=== PATIENT | female | born 1930 | race Caucasian/White ===

== ENCOUNTER → 2017-01-03 | Outpatient (CLI) | payer MEDICARE, OTHER | END | disposition home or self-care (01) | LOC: GMAH 11:21 | PROVIDERS: ATTEND Family Medicine | DX: E78.2 Mixed hyperlipidemia (principal); I10 Essential (primary) hypertension; E03.9 Hypothyroidism, unspecified ==

== ENCOUNTER → 2017-01-04 | Outpatient (CLI) | payer MEDICARE, OTHER | END | disposition home or self-care (01) | LOC: GMAH 10:50 | PROVIDERS: ATTEND Family Medicine | DX: N39.0 Urinary tract infection, site not specified (principal) ==

== ENCOUNTER → 2017-01-22 | Outpatient (CLI) | payer MEDICARE, OTHER ==
--- NOTE | 2017-01-23 14:57 | MAM ---
History: Well woman exam. Personal history of breast cancer status post left mastectomy Date of exam: 01/22/2017 Services provided: Right full field digital screening mammography. CAD, the images were reviewed with R2 computer aided detection. FINDINGS: Glandular tissue is scattered glandular contour. Comparison with 2013 and 2015 exams. 7 mm nodule right breast 9:00 sonographically approximately 4 to 6 cm from the nipple. Vascular calcifications are shown. No architectural distortion or clustered microcalcification. IMPRESSION: Incomplete exam Recommendation: Directed right breast sonography 9:00. BIRAD CATEGORY: 0 INCOMPLETE Electronically signed by: Anaid Torres MD 01/23/2017 2:57 PM CDT Workstation: [id number]
== END | disposition home or self-care (01) ==
LOC: MAMMO 09:49
PROVIDERS: ATTEND Family Medicine
DX: Z12.31 Encounter for screening mammogram for malignant neoplasm of breast (principal)

== ENCOUNTER → 2017-02-08 | Outpatient (CLI) | payer MEDICARE, OTHER ==
--- NOTE | 2017-02-08 16:00 | US ---
History: Mammographic nodule right breast 9:00. DATE OF SERVICE: 02/08/2017 Services provided: Directed right breast sonography. FINDINGS: Patient is status post left mastectomy. Review of screening mammogram from 01/22/2017. Ultrasound examination confirms a 7 mm solid nodule with increased focal vascularity. No additional sonographic abnormality is shown in this patient who has had a left mastectomy remotely for breast carcinoma. IMPRESSION: Suspicious exam. 7 mm solid nodule right breast. Recommendation: Ultrasound-guided needle sampling. Findings and recommendations were discussed with the patient today. BIRAD CATEGORY: 4 SUSPICIOUS FINDINGS Electronically signed by: Anaid Torres MD 02/08/2017 3:59 PM CDT Workstation: [employer]
== END | disposition home or self-care (01) ==
LOC: MAMMO 15:01
PROVIDERS: ATTEND Family Medicine
DX: Z85.3 Personal history of malignant neoplasm of breast (principal)

== ENCOUNTER → 2017-02-21 | Outpatient (CLI) | payer MEDICARE, OTHER ==
--- NOTE | 2017-02-21 10:00 | OP ---
DATE OF PROCEDURE: 02/21/17 PREOPERATIVE DIAGNOSIS: 1. Right breast mass. POSTOPERATIVE DIAGNOSIS: 1. Right breast mass. PROCEDURE: 1. Sonographically guided needle core biopsy, right breast mass. SURGEON: Rajendra Bassett MD. HAND ALTERATIONS TAILOR: None. ANESTHESIA: Local infiltration of 1% lidocaine. INDICATION: The patient is an 86-year-old female who is status post left mastectomy in the distant past from malignancy. Routine mammography revealed a small solid mass in the 9 o'clock position of the right breast. She was brought to the Ultrasound Unit today for sonographically guided needle core biopsy after the risks, benefits and alternatives to the procedure were discussed and accepted. FINDINGS: Multiple cores were taken with the needle identified by ultrasound within the mass. PROCEDURE: The patient was placed in the supine position and the right shoulder and back were raised on a pillow. The breast was examined and the lesion was identified. The breast medial to the ultrasound probe is prepped with Betadine and draped. Local infiltration of anesthesia was obtained with 1% lidocaine and a stab wound was made with the 15 blade. When this was done, the biopsy device was introduced for multiple passes through the lesion. The specimens were sent for pathological evaluation. Hemostasis was obtained with pressure and a single 4-0 Nylon simple suture. Sterile dressing and pressure dressing was applied. The patient tolerated the procedure well. Estimated blood loss was less than 5 mL. #[id number] [facility]
--- NOTE | 2017-02-22 12:51 | US ---
History: Right breast nodule 9:00. Ultrasound-guided core biopsy: 16 images are submitted from an ultrasound-guided needle biopsy of a 7 mm nodule in the right breast 9:00. Several of the images demonstrate the needle traversing the nodule. No complication is demonstrated. IMPRESSION: Technically successful ultrasound-guided core needle biopsy right breast nodule 9:00, performed by the patient's surgeon. Electronically signed by: Anaid Torres MD 02/22/2017 12:49 PM CDT Workstation: [id number]
== END | disposition home or self-care (01) ==
LOC: US 07:52
PROVIDERS: ATTEND Surgery
PROC: 0HBT3ZX Excision of Right Breast, Percutaneous Approach, Diagnostic (ICD-10-PCS; principal; 2017-02-21)
DX: D05.81 Other specified type of carcinoma in situ of right breast (principal)

== ENCOUNTER → 2017-07-25 | Outpatient (CLI) | payer MEDICARE, OTHER | END | disposition home or self-care (01) | LOC: LAB.O 15:40 | PROVIDERS: ATTEND Urology | DX: R31.0 Gross hematuria (principal); N39.0 Urinary tract infection, site not specified ==

== ENCOUNTER → 2017-07-31 | Outpatient (CLI) | payer MEDICARE, OTHER ==
--- NOTE | 2017-07-31 19:41 | CT ---
EXAM DESCRIPTION: Abdomen/Pelvis w/wo Contrast CLINICAL HISTORY: POOR URINARY STREAM COMPARISON: None Available TECHNIQUE: Contiguous axial images of the abdomen and pelvis were obtained after the administration of intravenous contrast followed by reconstruction images.This exam was performed according to our departmental dose-optimization program, which includes automated exposure control, adjustment of the mA and/or kV according to patient size and/or use of iterative reconstruction technique. FINDINGS: Multiple nonspecific low-attenuation lesions are seen in the left kidney. Some are too small to characterize accurately. None are definitely solid. A few similar lesions are seen in the right kidney. Gallbladder is surgically absent. There is colonic diverticulosis. No clear evidence of diverticulitis. No definite peroneal or urinary bladder mass. There is a small hiatal hernia. There is no evidence of obstruction of either renal collecting system. There is mild irregularity of posterior nerve bladder mucosa, which is nonspecific and could be related to underdistention of the urinary bladder. The liver, spleen, pancreas and kidneys are otherwise within normal limits. There is no hydronephrosis. Adrenal glands are within normal limits. Aorta is normal in caliber and tapering. No significant free fluid. No free air. No bowel obstruction. There is no stranding of the mesenteric fat. IMPRESSION: No clear etiology for acute symptoms. Electronically signed by: Esau Pace 07/31/2017 7:39 PM HEAD OF ICT
== END | disposition home or self-care (01) ==
LOC: CT 11:08
PROVIDERS: ATTEND Urology
DX: R39.12 Poor urinary stream (principal)

== ENCOUNTER → 2018-01-25 | Outpatient (CLI) | payer OTHER | LOC: GMAH 10:28 | PROVIDERS: ATTEND Family Medicine | DX: E03.9 Hypothyroidism, unspecified (principal); E78.2 Mixed hyperlipidemia ==

== ENCOUNTER → 2018-02-13 | Outpatient (CLI) | payer OTHER ==
--- NOTE | 2018-02-15 15:23 | MAM ---
EXAM DESCRIPTION: 3D Screening BILATERAL : Digital Mammography. CLINICAL HISTORY: 87 years Female SCREENING left breast cancer with mastectomy. "Knot in right breast, taking medicine." Prior right breast biopsy. Mother with ovarian cancer. Childbirth. Postmenopausal. No HRT. COMPARISON: Right breast digital screening 2-D mammography 01/22/2017.. Report from prior examination also reviewed TECHNIQUE: Right CC and MLO projection full-field images, 3-D tomosynthesis digital mammographic technique. CAD not utilized. FINDINGS: Right breast parenchymal density pattern is: Heterogeneously dense breast tissue, which may obscure small masses. No skin thickening or nipple retraction. Vascular calcifications. Right axillary lymph nodes. Skin moles indicated by skin markers. Secretory calcifications. No new focal, stellate mass or density, focal asymmetry , and no suspicious microcalcifications right breast. Stable mammograms compared to prior study, taking into account differences in mammographic technique. IMPRESSION: BI-RADS CATEGORY: 2 - BENIGN FINDINGS. FOLLOW UP: Routine digital right breast screening, one year interval from January 2019. Written communication explaining the IMPRESSION and follow-up, will be mailed to the patient and referring health care provider. According to the [employer], yearly mammograms are recommended starting at age 40 and continuing as long as a woman is in good health. Any breast change noted on a breast self-exam should be reported promptly to the patient's healthcare provider. Breast MRI is recommended for women with an approximately 20-25% or greater lifetime risk of breast cancer, including women with a strong family history of breast or ovarian cancer and women who have been treated for Hodgkin's disease. A negative mammographic report should not delay tissue diagnosis in patients with significant clinical history or physical findings. Extremely dense breast tissue limits the sensitivity of digital mammography. Electronically signed by: Esau Mane MD 02/15/2018 3:22 PM CDT
== END ==
LOC: MAMMO 11:00
PROVIDERS: ATTEND Family Medicine
DX: Z12.31 Encounter for screening mammogram for malignant neoplasm of breast (principal)

== ENCOUNTER 2018-07-05 17:03 | Inpatient (IN) | payer OTHER ==
[2018-07-05] MEDS ORDERED: IPRATROPIUM/ALBUTEROL 3 ML VIAL NEB ONE (17:32)
[2018-07-05] MEDS ORDERED: KETOROLAC TROMETHAMINE INJ 30 MG/ML VIAL IM ONE (17:32)
[2018-07-05] MEDS ORDERED: HYDROcodone 5MG/APAP 325MG 1 EA TAB PO ONE (17:33)
--- NOTE | 2018-07-05 17:53 | RAD ---
EXAM DESCRIPTION: Chest,2 Views CLINICAL HISTORY: 87 years Female hypoxia cough 1 week COMPARISON: 10/30/2012. FINDINGS: Mildly prominent cardiomediastinal silhouette. Atherosclerotic calcifications in the thoracic aorta. Mild blunting of the bilateral costophrenic angles which could be from small pleural effusions. Mild opacity at the lung bases greater on the right. The areas of opacity could be from pneumonia, atelectasis or aspiration. No pneumothorax. There are surgical clips in the left axillary region. Degenerative changes in the shoulders and spine. IMPRESSION: Bibasilar opacities greater on the right which could be from infectious process, atelectasis or aspiration. Electronically signed by: Kiko Olsen MD 07/05/2018 5:52 PM TEACHER AIDE
[2018-07-05] MEDS ORDERED: KETOROLAC TROMETHAMINE INJ 30 MG/ML VIAL IV ONE (17:55)
[2018-07-05] MEDS ORDERED: AZITHROMYCIN IV 500 MG in SODIUM CHLORIDE 0.9% 250ML 250 ML IVPB ONE (18:24)
[2018-07-05] MEDS ORDERED: SODIUM CHLORIDE 0.9% 1000ML 1,000 ML IVS ONE ×2 (18:24→22:40)
[2018-07-05] MEDS ORDERED: cefTRIAXone SODIUM 1 GM VIAL IM ONE (18:24)
[2018-07-05] MEDS ORDERED: cefTRIAXone SODIUM 1 GM VIAL ONE (18:33)
[2018-07-05] MEDS ORDERED: cefTRIAXone SODIUM 1 GM in SODIUM CHL 0.9% 50ML MIN-BAG+ 50 ML IVPB ONE (18:33)
[2018-07-05] MEDS ORDERED: SODIUM CHL 0.9% 50ML MIN-BAG+ 50 ML IVPB ONE (18:34)
--- NOTE | 2018-07-05 19:19 | ED.PDOC ---
History of Present Illness - General Chief Complaint: Back Pain or Injury Stated Complaint: low back pain Time Seen by Provider: 07/05/18 17:18 Source: patient, family Exam Limitations: no limitations - History of Present Illness Initial Comments: the patient is an 87-year-old female presenting to the emergency room secondary to persistent cough for the last week and increasing body aches including low back pain today. She has been having a harder time getting around over the last few days. She has been feeling more short of breath. Cough has been minimally productive. No syncope. No significant urinary symptoms. She is pleasant and cooperative. She is hypoxic at around 88% at rest on room air. She is old and frail. Timing/Duration: unsure Severity: moderate Improving Factors: nothing Worsening Factors: nothing Associated Symptoms: cough, loss of appetite, malaise, shortness of breath, weakness Allergies/Adverse Reactions: Allergies NO KNOWN ALLERGY Allergy (Verified 10/03/12 06:50) Home Medications: Ambulatory Orders Aspirin [Aspir-81] 81 mg PO BID #0 10/03/12 Calcium 1,200 mg PO DAILY #0 10/03/12 Esomeprazole [Nexium] 40 mg PO DAILY #0 10/03/12 Fish Oil 1,200 mg PO PRN PRN #0 10/03/12 Irbesartan [Avapro] 300 mg PO DAILY #0 10/03/12 Levothyroxine Sodium [Synthroid] 0.1 mg PO DAILY #0 10/03/12 Multiple Vitamin [Ocuvite] 1 ea PO PRN PRN #0 10/03/12 Rosuvastatin Calcium [Crestor] 40 mg PO DAILY #0 10/03/12 Temazepam [Restoril] 30 mg PO HS PRN #0 10/03/12 Review of Systems - Review of Systems Constitutional: States: malaise, weakness EENTM: States: nose congestion Respiratory: States: cough, short of breath Cardiology: States: no symptoms reported Gastrointestinal/Abdominal: States: no symptoms reported Genitourinary: States: no symptoms reported Musculoskeletal: States: back pain Skin: States: no symptoms reported Neurological: States: no symptoms reported, weakness - generalized Endocrine: States: no symptoms reported All other Systems: No Change from Baseline Past Medical History (General) - Patient Medical History Hx Seizures: No Hx Stroke: No Hx Asthma: No Hx of COPD: No Hx Cardiac Disorders: Yes Hx Congestive Heart Failure: No Hx Pacemaker: No Hx Hypertension: Yes Hx Diabetes: No Hx Cancer: Yes - Breast Hx MRSA: No Surgical History: cholecystectomy - Vaccination History Hx Influenza Vaccination: Yes Hx Pneumococcal Vaccination: Yes - Social History Hx Tobacco Use: No Hx Alcohol Use: No Hx Substance Use: No Hx Physical Abuse: No Hx Emotional Abuse: No Family Medical History - Family History Mother Family History: Unknown Living Status: Unknown Physical Exam - Physical Exam General Appearance: Alert, Frail, Ill Appearing Eye Exam: bilateral normal Ears, Nose, Throat: hearing grossly normal, normal ENT inspection Neck: full range of motion, supple Respiratory: no respiratory distress, no accessory muscle use, rales, rhonchi Cardiovascular/Chest: normal peripheral pulses, no edema, tachycardia - mild Peripheral Pulses: radial,right: 2+, radial,left: 2+, dorsalis pedis,right: 2+, dorsalis pedis,left: 2+ Gastrointestinal/Abdominal: non tender, soft Rectal Exam: deferred Back Exam: normal inspection, no CVA tenderness Extremity: non-tender, normal inspection, no pedal edema, normal capillary refill Neurologic: locomotive oiler II-XII nml as tested, alert, normal mood/affect, oriented x 3 Skin Exam: normal color Comments: Vital Signs - 24 hr 07/05/18 07/05/18 07/05/18 17:20 17:49 18:04 Temperature 101.2 F H Pulse Rate 100 H 95 H Pulse Rate [ 105 H Left Brachial] Respiratory 24 22 20 Rate Blood Pressure 111/70 [Left Arm] O2 Sat by Pulse 87 L 90 L 93 L Oximetry 07/05/18 07/05/18 18:47 19:00 Temperature 99.3 F Pulse Rate Pulse Rate [ 93 H Left Brachial] Respiratory 28 H 20 Rate Blood Pressure 105/63 [Left Arm] O2 Sat by Pulse 93 L Oximetry Progress - Progress Progress: 07/05/18 19:20 patient's an 87-year-old female presenting to emergency room with what appears to be bilateral basilar pneumonia approximately one week's duration. Blood cultures have been performed. She has been placed on Rocephin and azithromycin. She also has mild acute on chronic renal failure and received is receiving IV fluids for this. She is also receive a dose of hydrocodone and Toradol for her low back pain. The patient is hypoxic and is on supplemental oxygen. We did give a trial of the DuoNeb without much change. Admit for further care. - Results/Orders Results/Orders: Laboratory Tests 07/05/18 07/05/18 07/05/18 17:55 17:55 17:55 WBC 7.0 RBC 3.56 L Hgb 10.2 L Hct 31.7 L MCV 89.1 MCH 28.6 MCHC 32.1 L RDW 14.4 Plt Count 197 MPV 8.1 Absolute Neuts (auto) 6.20 Absolute Lymphs (auto) 0.30 L Absolute Monos (auto) 0.40 Absolute Eos (auto) 0.00 Absolute Basos (auto) 0.00 Neutrophils % 88.7 H Lymphocytes % 4.5 L Monocytes % 6.1 Eosinophils % 0.4 L Basophils % 0.3 Sodium 129 L Potassium 4.2 Chloride 99 L Carbon Dioxide 21 Anion Gap 13.2 BUN 51 H Creatinine 1.72 H BUN/Creatinine Ratio 29.7 H Random Glucose 156 H Serum Osmolality 275.8 Lactic Acid 1.8 Calcium 8.1 L Magnesium 1.9 Total Bilirubin 0.8 AST 47 H ALT 34 Alkaline Phosphatase 83 Serum Total Protein 6.5 Albumin 3.2 Globulin 3.3 Albumin/Globulin Ratio 1.0 L chest x-ray shows bibasilar infiltrates consistent with pneumonia. Departure - Departure Clinical Impression: Community acquired pneumonia Qualifiers: Laterality: unspecified laterality Qualified Code(s): J18.9 - Pneumonia, unspecified organism Disposition: Admit Patient Condition: Serious Referrals: Malik Guillaume MD [Primary Care Provider] - 1-2 Weeks Home Medications: Ambulatory Orders Aspirin [Aspir-81] 81 mg PO BID #0 10/03/12 Calcium 1,200 mg PO DAILY #0 10/03/12 Esomeprazole [Nexium] 40 mg PO DAILY #0 10/03/12 Fish Oil 1,200 mg PO PRN PRN #0 10/03/12 Irbesartan [Avapro] 300 mg PO DAILY #0 10/03/12 Levothyroxine Sodium [Synthroid] 0.1 mg PO DAILY #0 10/03/12 Multiple Vitamin [Ocuvite] 1 ea PO PRN PRN #0 10/03/12 Rosuvastatin Calcium [Crestor] 40 mg PO DAILY #0 10/03/12 Temazepam [Restoril] 30 mg PO HS PRN #0 10/03/12 Decision To Admit - Decistion To Admit Decision to Admit Reason: Medical Nature Decision to Admit Date: 07/05/18 Decision to Admit Time: 19:22
[2018-07-05] MEDS ORDERED: AZITHROMYCIN IV 500 MG VIAL IVPB ONE (19:21)
[2018-07-05] MEDS ORDERED: SODIUM CHLORIDE 0.9% 250ML 250 ML ONE (19:21)
--- NOTE | 2018-07-05 20:52 | HP ---
SUPERVISING PHYSICIAN: Tyler Clemente MD CHIEF COMPLAINT: Lower back pain. HISTORY OF PRESENT ILLNESS: Ms. Robbins is an 87 year-old female patient who presented to the Emergency Room last night complaining of a persistent dry cough over a week and increasing body aches as well as lower back pain. Most of the history was obtained from past admission history and limited medical records as the patient and her are very poor historians. The patient and her both noted that in the last two weeks they both have had upper respiratory symptoms and was treated in the clinic. They are unsure as to what treatment they actually received. They both report that the got better but Ms. Robbins got significantly worse. She is also being treated for pain management with lower back problems and has been on NSAIDs to include Aleve as well as Tylenol No. 3 in the past. The patient was told by Dr. Guillaume to stop the Aleve and continue with codeine. However, the patient stated she did not like the way the codeine made her feel so she went back to taking Aleve which was taking anywhere from 4 to 6 a day on a regular basis. Her noted she had gotten out of bed several times in the past week and slid down to the floor and was not able to get up at times, at which time she would spend almost up to 4 to 8 hours on the floor until someone could help her up. She denied any loss of consciousness or any other pain or trauma related to the fall. She noted that the cough has progressively worsened. She denies any significant shortness of breath but said she has been having to sleep in a chair which she reports she does so because of her back pain. On initial presentation to the Emergency Department she was noted to be hypoxic with 88% SP02 on room air. LABORATORY: She had a normal white at 7,000 with an early left shift. Hemoglobin 10.2, hematocrit 31.7. She did have an elevated ESR at 123. Chemistries showed a mild hyponatremia at 129 but her kidney function showed significant renal insufficiency with a creatinine of 1.72 and BUN of 51. The patient also noted that she has been having some difficulty urinating which apparently is not new to the patient but she feels like in the last several weeks she has not been able to completely empty her bladder or it is difficult to get a stream started. At time of admission the patient did have a Staples catheter in place and a urinalysis was pending. She had a chest x-ray upon presentation to the Emergency Department and per radiology interpretation note of bibasilar opacities greater on the right which could be an infectious process versus aspiration versus atelectasis. Dr. Clemente, Emergency Room physician, requested the patient be admitted now for bibasilar pneumonia. She was started on antibiotics to include Rocephin and azithromycin in the Emergency Room. She is now being admitted to the hospital for continuous treatment and evaluation of community acquired pneumonia. She was stable at time of admission. PAST MEDICAL HISTORY: (From previous medical records.) 1. Hypertension. 2. Hyperlipidemia. 3. Hypothyroidism. 4. History of breast cancer. 5. History of colonic polyps. PAST SURGICAL HISTORY: 1. Trigger finger release on the right index finger. 2. History of cyst removed from the right leg. 3. Left-sided mastectomy. 4. 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 CURRENT MEDICATIONS: 1. Flomax 0.4 mg daily. 2. Synthroid 0.1 mg daily. 3. Avapro 300 mg daily. 4. Tylenol No. 3, one to two tablets every 4 hours as needed for pain. 5. Temazepam 30 mg at bedtime. 6. Meclizine 25 mg daily. 7. Crestor 40 mg daily. 8. Dexilant 60 mg daily. 9. Arimidex 1 mg daily. ALLERGIES: No known drug allergies. FAMILY HISTORY: Her mother is at age 70 from a stroke. Her mother also had a history of ovarian cancer. Her father at age 92 from stomach cancer. She has no siblings. Her children are healthy. SOCIAL HISTORY: The patient lives with her in [place]. They have been well over 56 years. 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 She has no history of tobacco, alcohol or drug use. She graduated from the [employer]. Her is a land examiner and graduated from the [employer]. REVIEW OF SYSTEMS: CONSTITUTIONAL: As noted, general malaise, weakness with several falls last week. HEENT: Notes some nasal congestion, denies sore throat or earaches. RESPIRATORY: She does have a nonproductive cough but is having significant shortness of breath, no obvious wheezing. CARDIOVASCULAR: Denies chest pains, palpitations, syncopal episodes. GASTROINTESTINAL: Denies nausea, vomiting, diarrhea or abdominal pain. GENITOURINARY: Notes she does have some difficulty with starting urination but denies any dysuria, hematuria, or polyuria. MUSCULOSKELETAL: Chronic back pain. NEUROLOGICAL: Noted weakness, generalized, with no syncopal episodes, ataxia or other neurological deficits. PHYSICAL EXAMINATION: VITAL SIGNS: Temperature 101.2, pulse 105, blood pressure 111/70, respirations 20, saturation 87% on room air. After breathing treatments and nasal cannula at 2 liters she was showing 93% on room air. Admission weight 66.1 kg. GENERAL: The patient appears to be frail, ill-appearing, very pleasant and in no obvious acute distress. HEENT: Tympanic membranes are clear bilaterally. Oropharynx is pink with dry mucous membranes. NECK: Supple, non-tender, full range of motion. CHEST: Lung sounds notably have rhonchi throughout, more so on the right than the left with a mild, very faint inspiratory and expiratory wheeze but no rales are noted. CARDIOVASCULAR: Regular rate and rhythm without appreciable murmurs, rubs, or gallops. ABDOMEN: Soft, non-tender, positive bowel sounds. BACK: Normal inspection, no CVA tenderness. No obvious trauma. EXTREMITIES: No cyanosis, clubbing, or edema. NEUROLOGIC: Cranial nerves II through XII are grossly intact. Facial features are symmetrical. Extraocular movements were within normal limits. LABORATORY: CBC on admission showed a white count of 7,000. Hemoglobin 10.2, hematocrit 31.7, platelet count 197,000. Differential did show a left shift. Sedimentation rate 123. Chemistries showed a sodium of 129, potassium 4.2, BUN 51, creatinine 1.72, lactic acid 1.8, calcium 8.1, AST slightly elevated. All other liver functions were within normal limits. Urinalysis pending at time of admission. MICROBIOLOGY: Sputum cultures pending. She had influenza A and B by PCR which was normal. Blood cultures pending. RADIOLOGY: She had a chest x-ray in the Emergency Department prior to admission that showed bibasilar opacities greater on the right which could be from infectious process or aspiration. ASSESSMENT: 1. Right lower lobe pneumonia, community acquired versus concerns for aspiration but no history of dysphasia or choking episodes with patient showing to be febrile on admission and recently being treated for upper respiratory infection having failed to respond to outpatient measures. 2. Increasing weakness with multiple falls with no acute injury. 3. History of hypertension. 4. History of hyperlipidemia. 5. History of hypothyroidism from the patient. 6. History of breast cancer with previous mastectomy on the right. PLAN: The patient is going to be admitted to the medical/surgical floor for ongoing treatment of community acquired pneumonia. She was given initial antibiotics in the Emergency Room to include Rocephin, azithromycin which will be continued parenterally. She will be on aggressive pulmonary hygiene. Will await sputum cultures to further target antibiotic therapy as appropriate. Will anticipate her length of stay to be 2 to 3 days. We will repeat labs and chest x-ray in the morning as well as await a urinalysis. Until she can transition to outpatient management, we will continue to monitor and treat as needed. #[id number] [facility]
[2018-07-05] MEDS ORDERED: ACETAMINOPHEN 325 MG TAB PO PRN (22:12)
[2018-07-05] MEDS ORDERED: ONDANSETRON INJ 4 MG/2 ML VIAL IV PRN (22:12)
[2018-07-05] MEDS ORDERED: ALBUTEROL SULFATE 2.5 MG/3 ML VIAL NEB PRN (22:12)
[2018-07-05] MEDS ORDERED: KCL 20 MEQ/NS 1,000 ML IVS PRN (22:26)
[2018-07-05] MEDS ORDERED: cefTRIAXone SODIUM 1 GM in SODIUM CHL 0.9% 50ML MIN-BAG+ 50 ML IVPB SCH (22:30)
[2018-07-05] MEDS: IV SET AND CAP CHANGE INJ INJ SCH (22:49)
[2018-07-06] MEDS: PANTOPRAZOLE SODIUM IV 40 MG VIAL IV SCH (06:13)
--- NOTE | 2018-07-06 07:18 | RAD ---
EXAM DESCRIPTION: Chest,2 Views CLINICAL HISTORY: Pneumonia COMPARISON: 07/05/2018 FINDINGS: Single view of the chest is submitted. Cardiac silhouette is moderately enlarged. There is worsened pulmonary edema with consolidations at both lung bases. Clips are in the left axilla. IMPRESSION: Worsened atelectasis, consolidation and pulmonary edema. Electronically signed by: Esau Pace 07/06/2018 7:17 AM MAINTENANCE GROUNDSKEEPER
[2018-07-06] MEDS: HYDROcodone 5MG/APAP 325MG 1 EA TAB PO PRN (08:04)
[2018-07-06] MEDS: IPRATROPIUM/ALBUTEROL 3 ML VIAL NEB SCH ×4 (08:16→20:40)
[2018-07-06] MEDS ORDERED: cefTRIAXone SODIUM 1 GM VIAL ONE ×2 (09:51→19:29)
[2018-07-06] MEDS ORDERED: SODIUM CHL 0.9% 50ML MIN-BAG+ 50 ML IVPB ONE ×2 (09:51→19:29)
[2018-07-06] MEDS: cefTRIAXone SODIUM 1 GM in SODIUM CHL 0.9% 50ML MIN-BAG+ 50 ML IVPB SCH ×2 (09:53→21:03)
[2018-07-06] MEDS ORDERED: methylPREDNISolone SODIUM SUC 125 MG/2 ML VIAL IV ONE (10:37)
[2018-07-06] MEDS: SODIUM CHLORIDE 0.9% (FLUSH) 10 ML SYG IV PRN (10:57)
[2018-07-06] MEDS ORDERED: PANTOPRAZOLE SODIUM TAB 40 MG PO SCH (12:00)
[2018-07-06] MEDS: LEVOTHYROXINE SODIUM 0.1 MG TAB PO SCH (13:19)
[2018-07-06] MEDS: MECLIZINE HCL 12.5 MG TAB PO SCH (13:19)
[2018-07-06] MEDS: TAMSULOSIN 0.4 MG CAP PO SCH (13:19)
[2018-07-06] MEDS: KCL 20MEQ/D5NS 1,000 ML IVS PRN (15:22)
[2018-07-06] MEDS: IRBESARTAN 300 MG PO SCH (16:48)
[2018-07-06] MEDS: NON-FORMULARY MEDICATION 1 EA MIS (Anastrozole [Arimidex] 1 MG) PO SCH (16:48)
[2018-07-06] MEDS ORDERED: SODIUM CHLORIDE 0.9% 250ML 250 ML ONE ×2 (17:58→18:13)
[2018-07-06] MEDS ORDERED: AZITHROMYCIN IV 500 MG VIAL IVPB ONE ×2 (17:58→18:13)
[2018-07-06] MEDS: AZITHROMYCIN IV 500 MG in SODIUM CHLORIDE 0.9% 250ML 250 ML IVPB SCH (18:26)
[2018-07-06] MEDS: ATORVASTATIN 20 MG TAB PO SCH (21:11)
[2018-07-06] MEDS: TEMAZEPAM 15 MG CAP PO SCH (21:25)
--- NOTE | 2018-07-06 21:44 | PN ---
DATE: 07/06/18 SUPERVISING PHYSICIAN: Tyler Clemente M.D. SUBJECTIVE: The patient still has a fairly nonproductive cough and is obviously short of breath, but she has been afebrile since admission since starting the parenteral antibiotics. She has had no chest pains. OBJECTIVE: VITAL SIGNS: T max temperature 99.8, pulse 94, blood pressure 110/70 , respirations 16, satting 92% on nasal cannula at rest on 1.5 liters. I's and O's continue to show a positive balance with 2520 in, 600 out. She has had 1 bowel movement. Weight is 66.1 kg. GENERAL: The patient appears to be in no acute distress. She is alert. CHEST: Lung sounds have notable rhonchi throughout with no obvious wheezing. Diminished towards the bases. HEART: Regular rate and rhythm. ABDOMEN: Soft, non-tender. Positive bowel sounds. EXTREMITIES: Without any clubbing, cyanosis or edema. NEUROLOGIC: She is alert and oriented times three. LABORATORY: White count 6,500, hemoglobin 9.2, hematocrit 28.3, platelet count 171,000. Differential shows a left shift. Chemistries show sodium 133, potassium 3.9, BUN 53, creatinine 1.9 with CPK of 162, BNP of 91. Urinalysis showed just a small amount of bilirubin, otherwise within normal limits. MICROBIOLOGY: Blood cultures remain without any growth at 24 hours. Sputum culture is still pending. RADIOLOGY: Chest x-ray this morning per radiology interpretation shows worsening atelectasis, consolidation and pulmonary edema. ASSESSMENT: 1. Right lower lobe pneumonia, community acquired versus aspiration with no history of dysphagia or choking episodes with the patient showing to be febrile on admission and having recently being treated for upper respiratory infection having failed to respond to outpatient measures. 2. Increasing weakness with multiple falls over the last several weeks with no mention of acute injury. 3. History of hypertension showing to be stable. 4. History of hyperlipidemia. 5. History of hypothyroidism on supplementation. 6. History of breast cancer with previous mastectomy on the right. PLAN: Will continue with fluids and closely monitor her output. Will continue with parenteral antibiotics to include Rocephin and azithromycin. If the patient is not showing any significant improvement over the next 24 hours, certainly will need to be more aggressive with antibiotic coverage. Plan to repeat chest x-ray and labs in the morning and reassess. Until she can transition to outpatient management will continue to monitor and treat as needed. #[id number] MTDD
[2018-07-07] MEDS: guaiFENesin W/CODEINE LIQ 10 ML UD PO PRN ×2 (00:22→19:43)
--- NOTE | 2018-07-07 01:06 | RAD ---
EXAM DESCRIPTION: 2 views of the chest CLINICAL HISTORY: SOB, pneumonia COMPARISON: 07/06/2018 FINDINGS: Frontal and lateral views of the chest. Atherosclerotic calcification aortic arch. Cardiomegaly. Pulmonary vascular congestion. No pneumothorax. Small bilateral pleural effusions and bibasilar airspace opacities. Improved aeration from the comparison study. Postoperative change in the left axillary region. Osseous structures are stable. Upper abdominal soft tissues are unremarkable. IMPRESSION: 1. Mildly improved aeration of the lung bases bilaterally with otherwise stable appearance of the chest. Electronically signed by: Camden Lee 07/07/2018 1:05 AM [facility]
[2018-07-07] MEDS: KCL 20MEQ/D5NS 1,000 ML IVS PRN (02:17)
[2018-07-07] MEDS: SODIUM CHLORIDE 0.9% (FLUSH) 10 ML SYG IV PRN (06:05)
[2018-07-07] MEDS: PANTOPRAZOLE SODIUM IV 40 MG VIAL IV SCH (06:05)
[2018-07-07] MEDS: LEVOTHYROXINE SODIUM 0.1 MG TAB PO SCH (06:06)
[2018-07-07] MEDS ORDERED: SODIUM CHL 0.9% 50ML MIN-BAG+ 50 ML IVPB ONE ×2 (07:24→19:16)
[2018-07-07] MEDS ORDERED: cefTRIAXone SODIUM 1 GM VIAL ONE ×2 (07:24→19:16)
[2018-07-07] MEDS: IPRATROPIUM/ALBUTEROL 3 ML VIAL NEB SCH ×4 (07:52→20:37)
[2018-07-07] MEDS ORDERED: SODIUM CHLORIDE 0.9% (FLUSH) 10 ML SYG IV ONE (08:15)
[2018-07-07] MEDS: TAMSULOSIN 0.4 MG CAP PO SCH (08:28)
[2018-07-07] MEDS: MECLIZINE HCL 12.5 MG TAB PO SCH (08:28)
[2018-07-07] MEDS: ENOXAPARIN SODIUM 40 MG/0.4 ML SYG SUBCU SCH (08:33)
[2018-07-07] MEDS: cefTRIAXone SODIUM 1 GM in SODIUM CHL 0.9% 50ML MIN-BAG+ 50 ML IVPB SCH ×2 (08:43→20:34)
[2018-07-07] MEDS: SODIUM CHLORIDE 0.9% (FLUSH) 10 ML SYG IV SCH ×2 (08:48→20:35)
--- NOTE | 2018-07-07 11:12 | RAD ---
PROCEDURE: XR Chest, 2 Views CLINICAL INDICATION: The patient is 87 years old and is Female; pneumonia TECHNIQUE: Frontal and lateral views of the chest. COMPARISON: Prior study from 07/06/2018 FINDINGS: LUNGS: There is slight improvement on the lateral view with respect to retrocardiac LEFT lower lobe pneumonia posteriorly. Suspected infiltrate or atelectasis in the RIGHT middle lobe is stable. It is not well-seen on the lateral view. However, the RIGHT heart border is obscured. Pulmonary vascularity is within normal limits. PLEURAL SPACE: There is NO pneumothorax. Small LEFT pleural effusion remains. HEART: The heart size is enlarged. MEDIASTINUM: The mediastinal contour is unremarkable. BONES/JOINTS: High riding humeri with glenohumeral degeneration noted. No acute abnormality. There are degenerative changes of the spine identified. SOFT TISSUES: Surgical clips in the LEFT axilla are again noted. VASCULATURE: The aortic knob is calcified. IMPRESSION: 1. There is slight improvement on the lateral view with respect to retrocardiac LEFT lower lobe pneumonia posteriorly. 2. Suspected infiltrate or atelectasis in the RIGHT middle lobe is stable. It is not well-seen on the lateral view. However, the RIGHT heart border is obscured. 3. High riding humeri with glenohumeral degeneration noted. Electronically signed by: Davis Perea MD 07/07/2018 11:10 AM [facility]
--- NOTE | 2018-07-07 11:14 | RAD ---
EXAM DESCRIPTION: Pelvis (accession [id number]), Sacrum Coccyx (accession [id number]) CLINICAL HISTORY: 87 years, Female, s/p same level fall severe Lumbar pain COMPARISON: None. FINDINGS: A single view frontal radiograph of the pelvis was performed. In addition, three x-ray views of the sacrum and coccyx were obtained. Bone mineralization is decreased. No fracture is identified. The sacroiliac joints are symmetric. The pubic symphysis is intact. Intact ilioischial and iliopectineal lines. No coccygeal fracture is seen. There is mild anterolisthesis of L4 on L5. Facet hypertrophy involves the lumbar spine. Joint space narrowing of the LEFT hip is severe with [id number] articulation, subchondral cyst formation and bony proliferation. Joint space narrowing at the RIGHT hip is moderate to severe with bony perforation. IMPRESSION: No pelvic sacral or coccygeal fracture is identified. Osteopenia. Severe LEFT hip osteoarthritis. Moderate to severe RIGHT hip osteoarthritis. Electronically signed by: Alla Clinton MD 07/07/2018 11:13 AM [facility]
--- NOTE | 2018-07-07 11:14 | RAD ---
EXAM DESCRIPTION: Pelvis (accession [id number]), Sacrum Coccyx (accession [id number]) CLINICAL HISTORY: 87 years, Female, s/p same level fall severe Lumbar pain COMPARISON: None. FINDINGS: A single view frontal radiograph of the pelvis was performed. In addition, three x-ray views of the sacrum and coccyx were obtained. Bone mineralization is decreased. No fracture is identified. The sacroiliac joints are symmetric. The pubic symphysis is intact. Intact ilioischial and iliopectineal lines. No coccygeal fracture is seen. There is mild anterolisthesis of L4 on L5. Facet hypertrophy involves the lumbar spine. Joint space narrowing of the LEFT hip is severe with [id number] articulation, subchondral cyst formation and bony proliferation. Joint space narrowing at the RIGHT hip is moderate to severe with bony perforation. IMPRESSION: No pelvic sacral or coccygeal fracture is identified. Osteopenia. Severe LEFT hip osteoarthritis. Moderate to severe RIGHT hip osteoarthritis. Electronically signed by: Alla Clinton MD 07/07/2018 11:13 AM [facility]
--- NOTE | 2018-07-07 11:15 | RAD ---
PROCEDURE: XR Lumbar Spine, 2 or 3 Views CLINICAL INDICATION: The patient is 87 years old and is Female; s/p same level fall severe Lumbar pain TECHNIQUE: AP, lateral, and coned down lumbosacral views of the lumbar spine were performed . COMPARISON: Prior study from 02/25/2016 which is an magnetic resonance imaging of the lumbar spine. FINDINGS: VERTEBRAE: There are five nonribbearing lumbar vertebral bodies. Vertebral body heights are preserved. Minimal anterolisthesis of L4 on L5 persists. No acute fracture. DISC SPACES: There is severe disc space narrowing at L5-S1. There is severe disc space narrowing at T12-L1 and L1-L2. SOFT TISSUES: Unremarkable.No radiopaque foreign body. No significant soft tissue swelling noted. OTHER FINDINGS: There are postsurgical changes from prior cholecystectomy in the gallbladder fossa. Multilevel facet hypertrophy is noted. IMPRESSION: No fracture identified in the lumbar spine. Electronically signed by: Davis Perea MD 07/07/2018 11:14 AM [facility] [place]
[2018-07-07] MEDS: NON-FORMULARY MEDICATION 1 EA MIS (Anastrozole [Arimidex] 1 MG) PO SCH (11:52)
[2018-07-07] MEDS: IRBESARTAN 300 MG PO SCH (11:52)
--- NOTE | 2018-07-07 12:24 | PN ---
DATE: 07/07/18 SUPERVISING PHYSICIAN: Tyler Clemente M.D. SUBJECTIVE: The patient notes that she is still short of breath but feels a little bit better than yesterday. She has been afebrile since admission. She is still quite weak and requires assistance for transfers. The patient still continues to note that she has some lower back pain that seems to be worse when she coughs. OBJECTIVE: VITAL SIGNS: Temperature 97.9, pulse 101, blood pressure 137/77, respirations 18 to 22, satting 97% on nasal cannula at 2.5 liters. I's and O's show a positive balance of 2328 with 3303 in, 975 out. She has had 2 bowel movements. Weight is 67.6 kg. GENERAL: The patient is alert in no obvious distress, but she does show some evidence of shortness of breath when talking and ambulating. CHEST: Lung sounds are improved in the upper right and left lung lópez but lower bilaterally she continues to be coarse and diminished. No wheezing or rhonchi noted today. HEART: Regular rate and rhythm. BACK: No severe tenderness. No obvious trauma. There is some tenderness on palpation noted to the sacroiliac joints. ABDOMEN: Soft, non-tender. Positive bowel sounds. EXTREMITIES: Without any clubbing, cyanosis or edema. NEUROLOGIC: She is alert and oriented times three. LABORATORY: Chemistries today show normal electrolytes except for just slightly elevated chloride. Her anion gap is 9.5, CO2 is down to 19, creatinine has improved and back near baseline at 1.28. BUN remains elevated at 37. She continues to show a high serum osmolality at 291, calcium 6.9. Albumin 2.4 uncorrected. Calcium 8.1. MICROBIOLOGY: Blood cultures remain negative. Sputum culture is still pending. Flu swabs were negative. RADIOLOGY: Repeat chest x-ray shows mild improved aeration of the lung bases on 2 view chest bilaterally with otherwise stable appearance of the chest. ASSESSMENT: 1. Right lower lobe pneumonia, community acquired, with the patient showing good response to parenteral antibiotics to include Rocephin and azithromycin. 2. Generalized weakness with history of multiple falls in the last several weeks with no mention of acute injury. 3. Severe dehydration. 4. Acute renal failure with likely prerenal azotemia secondary to severe dehydration improving with IV fluids. 5. History of hypertension showing to be stable. 6. History of hyperlipidemia. 7. History of hypothyroidism on supplementation. 8. History of breast cancer with previous mastectomy on the right. PLAN: Will continue antibiotic therapy today with Rocephin and azithromycin and aggressive pulmonary hygiene. She is tolerating CPT well. Will continue this. Await sputum culture if possible to target antibiotic therapy as needed. Will order x-rays of her pelvis, sacrum coccyx and lumbar spine. I have saline locked her today with close monitoring of her output. Will repeat a BMP this afternoon. Will resume fluids as necessary. Until she can transition to outpatient management and oral therapy for continued treatment of pneumonia, will continue to monitor and treat as needed. #[id number] MTDD
[2018-07-07] MEDS: BENZOCAINE-MENTH LOZ (CEPACOL) 1 EA LOZ MT PRN ×2 (13:54→19:43)
[2018-07-07] MEDS ORDERED: SODIUM CHLORIDE 0.9% 250ML 250 ML ONE (16:49)
[2018-07-07] MEDS ORDERED: AZITHROMYCIN IV 500 MG VIAL IVPB ONE (16:50)
[2018-07-07] MEDS: AZITHROMYCIN IV 500 MG in SODIUM CHLORIDE 0.9% 250ML 250 ML IVPB SCH (17:34)
[2018-07-07] MEDS: ATORVASTATIN 20 MG TAB PO SCH (20:34)
[2018-07-07] MEDS: TEMAZEPAM 15 MG CAP PO SCH (20:54)
[2018-07-08] MEDS: SODIUM CHLORIDE 0.9% (FLUSH) 10 ML SYG IV PRN (06:19)
[2018-07-08] MEDS: LEVOTHYROXINE SODIUM 0.1 MG TAB PO SCH (06:20)
[2018-07-08] MEDS: PANTOPRAZOLE SODIUM IV 40 MG VIAL IV SCH (06:20)
--- NOTE | 2018-07-08 07:12 | RAD ---
EXAM DESCRIPTION: Chest,2 Views CLINICAL HISTORY: 87 years Female, pneumonia COMPARISON: 07/07/2018 IMPRESSION: The heart remains enlarged, with central pulmonary vascular congestion. Increased atelectasis or consolidation in the right lung base which obscures the right hemidiaphragm. Increased small right pleural effusion. Left basilar atelectasis or consolidation with small left pleural effusion which is not significantly changed. No pneumothorax. Surgical clips in the left axilla. No acute osseous abnormality. Electronically signed by: Charles Dooley MD 07/08/2018 7:11 AM [facility]
[2018-07-08] MEDS: BENZOCAINE-MENTH LOZ (CEPACOL) 1 EA LOZ MT PRN ×3 (07:19→19:29)
[2018-07-08] MEDS ORDERED: SODIUM CHL 0.9% 50ML MIN-BAG+ 50 ML IVPB ONE ×2 (07:27→20:18)
[2018-07-08] MEDS ORDERED: cefTRIAXone SODIUM 1 GM VIAL ONE ×2 (07:28→20:19)
[2018-07-08] MEDS: IPRATROPIUM/ALBUTEROL 3 ML VIAL NEB SCH ×4 (08:18→20:58)
[2018-07-08] MEDS: cefTRIAXone SODIUM 1 GM in SODIUM CHL 0.9% 50ML MIN-BAG+ 50 ML IVPB SCH ×2 (08:57→21:34)
[2018-07-08] MEDS: TAMSULOSIN 0.4 MG CAP PO SCH (08:58)
[2018-07-08] MEDS: MECLIZINE HCL 12.5 MG TAB PO SCH (08:58)
[2018-07-08] MEDS: NON-FORMULARY MEDICATION 1 EA MIS (Anastrozole [Arimidex] 1 MG) PO SCH (08:59)
[2018-07-08] MEDS: ENOXAPARIN SODIUM 40 MG/0.4 ML SYG SUBCU SCH (08:59)
[2018-07-08] MEDS: SODIUM CHLORIDE 0.9% (FLUSH) 10 ML SYG IV SCH ×2 (09:00→21:45)
[2018-07-08] MEDS: IRBESARTAN 300 MG PO SCH (09:01)
[2018-07-08] MEDS: HYDROcodone 5MG/APAP 325MG 1 EA TAB PO PRN ×2 (09:14→21:31)
--- NOTE | 2018-07-08 09:50 | PN ---
SUPERVISING PHYSICIAN: Tyler Clemente MD DATE: 07/08/18 SUBJECTIVE: The patient had no significant events overnight. She has been unable to get up out of the bed to the bathroom, but these are isolated incidents. No complaints of shortness of breath or pain at this time. OBJECTIVE: VITAL SIGNS: Blood pressure 143/81. Heart rate 101. Respiratory rate 18. Temperature 98.4. Oxygen saturation 95%. GENERAL: Ms. Robbins is an 87-year-old female who is in no active distress at this time. NEUROLOGIC: Alert, but not oriented to time or place at this time, but she is appropriate and follows commands. LUNGS: Coarse sounds, diminished bases, no wheezing. CARDIOVASCULAR: Regular rate and rhythm. Normal S1, S2. ABDOMEN: Soft. Positive bowel sounds. EXTREMITIES: Lower extremities with trace ankle edema. Pulses 2+. RADIOLOGY: Chest x-ray shows a little bit of pulmonary vascular congestion with some fluid in the fissure on the right. There is a right sided pleural effusion as well. LABORATORY: Chemistry shows sodium 142, potassium 4.2, chloride 114, CO2 22, BUN 29, creatinine 1.21. Glucose 115, calcium 7.5. MICROBIOLOGY: Cultures are still negative so far on the specimens created on . ASSESSMENT: 1. Community acquired pneumonia right lower lobe pneumonia. 2. Generalized weakness with history of multiple falls in the last several weeks. 3. Dehydration with acute kidney injury. 4. Hypertension. 5. Hyperlipidemia. 6. Hypothyroidism. 7. History of breast cancer with previous right mastectomy. PLAN: The patient still seems to be doing well on Rocephin and azithromycin. Cultures remain negative, so we will continue those antibiotics. I have added EzPAP today as the patient appears to have a little atelectasis on her chest x- ray. The right lower lobe looks to have a pleural effusion as well. There is some fluid in the fissure and her I&O is quite positive over the last several days. She has had decreased urine output as well, so I am going to give her some Lasix. Physical therapy has been consulted as well. We will evaluate and manage during her stay here. I have spoken with the family and they do want to do home health with physical therapy as well. Given recommendation by physical therapy, likely she will go home in the next 48 hours or so and participate with home health with physical therapy. She will need to go home on p.o. antibiotics as well. #[id number] ANNA
[2018-07-08] MEDS: FUROSEMIDE INJ 20 MG/2 ML VIAL IV SCH (10:18)
[2018-07-08] MEDS ORDERED: SODIUM CHLORIDE 0.9% 250ML 250 ML ONE (17:55)
[2018-07-08] MEDS ORDERED: AZITHROMYCIN IV 500 MG VIAL IVPB ONE (17:55)
[2018-07-08] MEDS: AZITHROMYCIN IV 500 MG in SODIUM CHLORIDE 0.9% 250ML 250 ML IVPB SCH (18:11)
[2018-07-08] MEDS: METOPROLOL SUCCINATE XL 25 MG TAB PO SCH (19:22)
[2018-07-08] MEDS: guaiFENesin W/CODEINE LIQ 10 ML UD PO PRN (19:29)
[2018-07-08] MEDS: TEMAZEPAM 15 MG CAP PO SCH (21:34)
[2018-07-08] MEDS: ATORVASTATIN 20 MG TAB PO SCH (21:34)
[2018-07-09] MEDS: guaiFENesin W/CODEINE LIQ 10 ML UD PO PRN ×3 (02:10→17:42)
[2018-07-09] MEDS: IV SET AND CAP CHANGE INJ INJ SCH (02:28)
[2018-07-09] MEDS: LEVOTHYROXINE SODIUM 0.1 MG TAB PO SCH (06:19)
[2018-07-09] MEDS: PANTOPRAZOLE SODIUM IV 40 MG VIAL IV SCH (06:19)
[2018-07-09] MEDS ORDERED: SODIUM CHL 0.9% 50ML MIN-BAG+ 50 ML IVPB ONE (07:32)
[2018-07-09] MEDS ORDERED: cefTRIAXone SODIUM 1 GM VIAL ONE (07:33)
[2018-07-09] MEDS: IPRATROPIUM/ALBUTEROL 3 ML VIAL NEB SCH ×4 (08:48→20:38)
[2018-07-09] MEDS: cefTRIAXone SODIUM 1 GM in SODIUM CHL 0.9% 50ML MIN-BAG+ 50 ML IVPB SCH (09:03)
[2018-07-09] MEDS: IRBESARTAN 300 MG PO SCH (09:03)
[2018-07-09] MEDS: NON-FORMULARY MEDICATION 1 EA MIS (Anastrozole [Arimidex] 1 MG) PO SCH (09:04)
[2018-07-09] MEDS: FUROSEMIDE INJ 20 MG/2 ML VIAL IV SCH (09:05)
[2018-07-09] MEDS: MECLIZINE HCL 12.5 MG TAB PO SCH (09:05)
[2018-07-09] MEDS: METOPROLOL SUCCINATE XL 25 MG TAB PO SCH (09:06)
[2018-07-09] MEDS: SODIUM CHLORIDE 0.9% (FLUSH) 10 ML SYG IV SCH ×2 (09:06→20:25)
[2018-07-09] MEDS: TAMSULOSIN 0.4 MG CAP PO SCH (09:06)
[2018-07-09] MEDS: ENOXAPARIN SODIUM 40 MG/0.4 ML SYG SUBCU SCH (09:06)
--- NOTE | 2018-07-09 09:32 | PN ---
SUPERVISING PHYSICIAN: Tyler Clemente MD DATE: 07/09/18 SUBJECTIVE: The patient states she is breathing a little bit better today. She is complaining of some back pain when she coughs primarily. X-ray was done a couple of days ago and does not show any compression fractures of the lumbar spine. Additionally, last night she did go into atrial fibrillation with rapid ventricular response. She spontaneously popped out of that on her own, however, I did put her on some Toprol XL 25 mg to try to prevent her from going back into it. We checked a TSH and a free T4 and the free T4 was a little bit abnormal, so I anticipate adjusting her Synthroid. OBJECTIVE: VITAL SIGNS: Blood pressure 135/81. Heart rate 85. Respiratory rate 20. Temperature 97.9. Oxygen saturation 95%. GENERAL: Ms. Robbins is an 87-year-old female who is in no active distress currently. She is sitting up in a chair. NEUROLOGIC: Alert and oriented. LUNGS: A little bit diminished in the bases, but otherwise clear to auscultation bilaterally. CARDIOVASCULAR: Regular rate and rhythm. Normal S1, S2. ABDOMEN: Soft. Positive bowel sounds. GENITOURINARY: Deferred. EXTREMITIES: Lower extremities with no significant edema. Pulses 2+. Capillary refill less than 2 seconds. LABORATORY: No labs or x-rays were checked this morning, however, as stated above, I did check her thyroid and her TSH was normal at 2.2, but free T4 was 1.45, so a little bit elevated. ASSESSMENT: 1. Community acquired pneumonia, right lower lobe. 2. Generalized weakness with history of multiple falls over the last several weeks. 3. Acute kidney injury secondary to dehydration. 4. Hypertension. 5. Hyperlipidemia. 6. Hypothyroidism. 7. History of breast cancer with previous right mastectomy. 8. Transient atrial fibrillation with rapid ventricular response. PLAN: I am going to reduce the Rocephin to q.24h. and keep the azithromycin as scheduled for now. I put her on Toprol XL due to the atrial fibrillation with rapid ventricular response that has since resolved. However, hopefully, this will prevent her from going back into it. Additionally, I am going to reduce her levothyroxine to 88 mcg because her free T4 is a little bit elevated. Right lower lobe yesterday still looks like a pleural effusion. I am hoping with the diuretics that this may actually start to improve a little bit, plus, she is on EzPAP, so we will see how she does. She has been accepted for home health with physical therapy. The family is concerned of her going home before she can get up out of bed on her own. I did discuss with them the possibility of Swing Bed, however, I have not spoken with Social Work regarding that as of yet, so I do not know if she will qualify for that, but it definitely seems to be an option for her, so we will keep that in mind. #[id number] MTDD
[2018-07-09] MEDS: HYDROcodone 5MG/APAP 325MG 1 EA TAB PO PRN ×3 (10:10→22:38)
[2018-07-09] MEDS ORDERED: SODIUM CHLORIDE 0.9% 250ML 250 ML ONE (17:59)
[2018-07-09] MEDS ORDERED: AZITHROMYCIN IV 500 MG VIAL IVPB ONE (18:00)
[2018-07-09] MEDS: AZITHROMYCIN IV 500 MG in SODIUM CHLORIDE 0.9% 250ML 250 ML IVPB SCH (18:10)
[2018-07-09] MEDS ORDERED: LEVOTHYROXINE SODIUM 0.088 MG TAB ONE (19:24)
[2018-07-09] MEDS ORDERED: OMEPRAZOLE CAP 20 MG CAP ONE (19:25)
[2018-07-09] MEDS: ATORVASTATIN 20 MG TAB PO SCH (20:24)
[2018-07-09] MEDS: TEMAZEPAM 15 MG CAP PO SCH (20:25)
--- NOTE | 2018-07-10 05:57 | RAD ---
Chest single view on 07/10/2018 CLINICAL INDICATION: Follow-up pneumonia COMPARISON: 07/08/2018 FINDINGS: Mild cardiomegaly is noted. There are small bilateral pleural effusions. There are continued bilateral lower lung opacities consistent with atelectasis and/or pneumonia. Mild increased interstitial changes may be chronic in nature versus mild edema. Vascular calcification is noted in the aorta. Degenerative changes are noted in the shoulders. IMPRESSION: No significant change in the appearance of the chest. Electronically signed by: Jeremías Noland 07/10/2018 5:55 AM [facility]
[2018-07-10] MEDS ORDERED: OMEPRAZOLE CAP 20 MG CAP PO SCH (06:30)
[2018-07-10] MEDS ORDERED: LEVOTHYROXINE SODIUM 0.088 MG TAB PO SCH (06:30)
[2018-07-10 07:18] VITALS: TEMP 97.9
[2018-07-10] MEDS: IPRATROPIUM/ALBUTEROL 3 ML VIAL NEB SCH ×2 (07:23→11:48)
[2018-07-10] MEDS ORDERED: SODIUM CHL 0.9% 50ML MIN-BAG+ 50 ML IVPB ONE (07:27)
[2018-07-10] MEDS ORDERED: cefTRIAXone SODIUM 1 GM VIAL ONE (07:28)
[2018-07-10] MEDS: SODIUM CHLORIDE 0.9% (FLUSH) 10 ML SYG IV SCH (09:08)
[2018-07-10] MEDS: cefTRIAXone SODIUM 1 GM in SODIUM CHL 0.9% 50ML MIN-BAG+ 50 ML IVPB SCH (09:09)
[2018-07-10] MEDS: ENOXAPARIN SODIUM 40 MG/0.4 ML SYG SUBCU SCH (09:10)
[2018-07-10] MEDS: MECLIZINE HCL 12.5 MG TAB PO SCH (09:11)
[2018-07-10] MEDS: METOPROLOL SUCCINATE XL 25 MG TAB PO SCH (09:11)
[2018-07-10] MEDS: NON-FORMULARY MEDICATION 1 EA MIS (Anastrozole [Arimidex] 1 MG) PO SCH (09:11)
[2018-07-10] MEDS: TAMSULOSIN 0.4 MG CAP PO SCH (09:11)
[2018-07-10] MEDS: IRBESARTAN 300 MG PO SCH (09:12)
[2018-07-10] MEDS: FUROSEMIDE INJ 20 MG/2 ML VIAL IV SCH (09:12)
[2018-07-10 11:50] VITALS: O2SAT 94
[2018-07-10 13:55] VITALS: BP 120/70
--- NOTE | 2018-07-16 11:08 | DS ---
SUPERVISING PHYSICIAN: Tyler Clemente MD ADMISSION DIAGNOSIS: 1. Right lower lobe pneumonia, community acquired versus concerns for aspiration but no history of dysphasia or choking episodes with patient showing to be febrile on admission and recently being treated for upper respiratory infection having failed to respond to outpatient measures. 2. Increasing weakness with multiple falls with no acute injury. 3. History of hypertension. 4. History of hyperlipidemia. 5. History of hypothyroidism from the patient. 6. History of breast cancer with previous mastectomy on the right. DISCHARGE DIAGNOSIS: 1. Community acquired pneumonia, right lower lobe, improving. 2. Generalized weakness with history of multiple falls in the last several weeks prior to admission, improving with therapy. 3. Acute kidney injury secondary to dehydration, back to baseline. 4. Hypertension, stable. 5. Hyperlipidemia, chronic. 6. Hypothyroidism, chronic, on supplementation. 7. History of breast cancer with previous right mastectomy. 8. Transient atrial fibrillation with rapid ventricular response, resolved with Cardizem and initiation of beta kit. REASON FOR HOSPITALIZATION: Ms. Robbins is an 87-year-old female patient who presented to the Emergency Room last night complaining of a persistent dry cough over a week and increasing body aches as well as lower back pain. Most of the history was obtained from past admission history and limited medical records as the patient and her are very poor historians. The patient and her both noted that in the last two weeks they both have had upper respiratory symptoms and was treated in the clinic. They are unsure as to what treatment they actually received. They both report that the got better but Ms. Robbins got significantly worse. She is also being treated for pain management with lower back problems and has been on NSAIDs to include Aleve as well as Tylenol No. 3 in the past. The patient was told by Dr. Guillaume to stop the Aleve and continue with codeine. However, the patient stated she did not like the way the codeine made her feel so she went back to taking Aleve which was taking anywhere from 4 to 6 a day on a regular basis. Her noted she had gotten out of bed several times in the past week and slid down to the floor and was not able to get up at times, at which time she would spend almost up to 4 to 8 hours on the floor until someone could help her up. She denied any loss of consciousness or any other pain or trauma related to the fall. She noted that the cough has progressively worsened. She denies any significant shortness of breath but said she has been having to sleep in a chair which she reports she does so because of her back pain. On initial presentation to the Emergency Department she was noted to be hypoxic with 88% SP02 on room air. LABORATORY: White count on admission 7,000, hemoglobin 10.2, hemoglobin 31.7, platelet count 197,000. Differential with left shift. At discharge, white count was 8,900. Hemoglobin and hematocrit were stable at 10.3 and 31.5 respectively, platelet count 302,000. Differential without a left shift. Chemistries on admission showed low sodium of 133, BUN 53, creatinine 1.90. Lactic acid 1.8, calcium 7.2. CK-MB 4.6, CK 162, BNP 91. TSH normal at 2.22. After treatment with fluids and prior to discharge, electrolytes were within normal limits. BUN was down to 19, creatinine at baseline at 0.97. Urinalysis showed a small amount of bilirubin, otherwise within normal limits. MICROBIOLOGY: Final blood cultures showed no growth at 5 days. Final sputum culture showed moderate mixed normal respiratory emanuel. Influenza A and B by PCR was negative. RADIOLOGY: Initially in the Emergency Room, she had a chest x-ray and per radiologic interpretation it showed bibasilar opacities, greater on the right which could be from infectious process, atelectasis or aspiration. Multiple x- rays were taken through hospitalization. Last x-ray on discharge after treatment per radiologic interpretation showed no significant change in the appearance of the chest. There were still small bilateral pleural effusions, continued bilateral lower lung opacities consistent with atelectasis or pneumonia with mild increased interstitial changes, more chronic in nature versus mild edema. Please see those reports for full details. She had x-rays of her lumbar spine, pelvis, sacrum which were without any acute findings. EKG showed atrial fibrillation with rapid ventricular response on 07/08/18 with a rate of 134. Prior to discharge, she was in normal sinus rhythm without any ST changes with right bundle branch block which was noted previously with no acute findings as compared. HOSPITAL COURSE: Ms. Robbins was admitted for treatment of pneumonia after she had multiple falls at home and was having continued increasing weakness. She was initiated on antibiotic therapy at time of admission with azithromycin and Rocephin. She did show good response to treatment. However, she did develop a transient episode of atrial fibrillation with rapid ventricular response which resolved with initiation of Cardizem and then a beta kit with metoprolol. She was showing some weakness and due to falls, she had an evaluation and physical therapy recommended that once the patient was medically cleared, she could go home to continue with outpatient management with home health. The patient was clinically improving and therefore she was discharged. PLAN: Ms. Robbins was to followup with Dr. Guillaume in 1 to 2 weeks. She was set up for oxygen to wear as directed to maintain levels with 2 liter nasal cannula. She was to resume her home medications as instructed and take new prescriptions as directed. She was told to return to the hospital should she have any concerning symptoms. Diet at discharge was regular diet as tolerated. Activities were to be as per physical therapy. She was to have continued physical therapy through home health. This was arranged prior to discharge. NEW MEDICATIONS AT DISCHARGE: 1. Omnicef 300 mg twice daily, #8. 2. Synthroid 0.88 mcg daily, which was decreased from admission dose. 3. Toprol XL 25 mg daily, #30, extended release. No other new medications were provided. DISPOSITION: The patient was discharged to home to continue with home health with family. CONDITION ON DISCHARGE: Stable and improved. #[id number] MTDD
== END 2018-07-10 15:15 | disposition home health service (06) | DRG 194 ==
LOC: ER 17:03 → MS 20:50 → OBSVTOIN 20:50
PROVIDERS: ADMIT Nurse Practitioner Family; ATTEND Nurse Practitioner Family
DX: J18.9 Pneumonia, unspecified organism (principal); E87.1 Hypo-osmolality and hyponatremia; N17.9 Acute kidney failure, unspecified; J90 Pleural effusion, not elsewhere classified; I48.91 Unspecified atrial fibrillation; R29.6 Repeated falls; E86.0 Dehydration; I10 Essential (primary) hypertension; E78.5 Hyperlipidemia, unspecified; E03.9 Hypothyroidism, unspecified; Z85.3 Personal history of malignant neoplasm of breast

== ENCOUNTER → 2018-08-02 | Outpatient (CLI) | payer OTHER | LOC: GRHH 12:07 | PROVIDERS: ATTEND Family Medicine | DX: I10 Essential (primary) hypertension (principal); J12.9 Viral pneumonia, unspecified ==

== ENCOUNTER → 2018-09-12 | Outpatient (CLI) | payer OTHER | LOC: GRHH 09:24 | PROVIDERS: ATTEND Family Medicine | DX: I10 Essential (primary) hypertension (principal); E78.5 Hyperlipidemia, unspecified ==

== ENCOUNTER 2018-10-17 15:02 | Emergency (ER) | payer OTHER ==
[2018-10-17 15:12] VITALS: TEMP 98.5
--- NOTE | 2018-10-17 16:09 | RAD ---
EXAM DESCRIPTION: Femur,Right CLINICAL HISTORY: 88 years Female, fall with pain COMPARISON: None. TECHNIQUE: 2 views of the right femur were obtained. FINDINGS: The visualized bones demonstrate no acute fracture or dislocation. Mild degenerative changes are identified in the right hip and knee joints. IMPRESSION: No radiographic evidence of acute fracture in the right femur. Electronically signed by: Yudelka Erickson MD 10/17/2018 4:06 PM [facility]
--- NOTE | 2018-10-17 16:09 | RAD ---
EXAM DESCRIPTION: Hip,Right 2 Views CLINICAL HISTORY: 88 years Female, fall with pain COMPARISON: None available. FINDINGS: The visualized bones are well-mineralized.No acute fracture or dislocation. [id number] degenerative changes are identified in the right hip joint. The soft tissues appear grossly unremarkable. 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 No acute abnormality. Electronically signed by: Yudelka Erickson MD 10/17/2018 4:[address] [facility]
--- NOTE | 2018-10-17 16:11 | RAD ---
EXAM DESCRIPTION: Pelvis CLINICAL HISTORY: fall with pain COMPARISON: None. TECHNIQUE: AP pelvis FINDINGS: Degenerative changes are observed in both hips. There is loss of joint space. Sclerosis of the acetabular roofs are observed. Acetabular osteophyte formation is noted. Degenerative changes are observed in the lower lumbar spine. No pelvic fracturing is detected. No hip fractures are identified. IMPRESSION: Degenerative changes are observed in both hips. No fracturing is detected. Electronically signed by: Chente Vargas MD 10/17/2018 4:08 PM [facility]
--- NOTE | 2018-10-17 16:23 | ED.PDOC ---
History of Present Illness - General Chief Complaint: Lower Extremity Injury Stated Complaint: right hip pain Time Seen by Provider: 10/17/18 15:26 Source: patient Exam Limitations: no limitations - History of Present Illness Initial Comments: The patient's an 88-year-old female presenting to emergency room with her after having had another fall today. She was reaching over trying to pick something up when she tumbled over her walker and her landed on top of her. She has pain in the right hip in the proximal rightthigh. No gross deformity. No shortening. She does have pain with movement of the leg. She does have pain with palpation of the leg. No crepitus. Passive range of motion is preserved. Sensation is at her baseline. No other new injuries. She does have a hematoma to the right side of the scalp from her fall last week. No other new injuries. The patient is pleasant and cooperative. Timing/Duration: 1-3 hours Severity: moderate Improving Factors: immobilization Worsening Factors: movement Associated Symptoms: denies symptoms Allergies/Adverse Reactions: Allergies NO KNOWN ALLERGY Allergy (Verified 10/03/12 06:50) Home Medications: Ambulatory Orders Acetamin W/Cod #3 Tab [Tylenol w/CODEINE #3] 1 - 2 tablet PO Q4H PRN 07/06/18 Anastrozole [Arimidex] 1 mg PO DAILY 07/06/18 Dexlansoprazole [Dexilant] 60 mg PO DAILY 07/06/18 Irbesartan [Avapro] 300 mg PO DAILY 07/06/18 Meclizine HCl [Meclizine 25] 25 mg PO DAILY 07/06/18 Rosuvastatin Calcium [Crestor] 40 mg PO DAILY 07/06/18 Tamsulosin [Flomax] 0.4 mg PO DAILY 07/06/18 Temazepam 30 mg PO BEDTIME 07/06/18 Cefdinir [Omnicef] 300 mg PO BID #8 cap 07/10/18 Levothyroxine Sodium [Synthroid] 88 mcg PO QDAC #60 tab 07/10/18 Metoprolol Succinate [Toprol Xl] 25 mg PO DAILY #30 tab.er.24 07/10/18 Tramadol HCl 50 mg PO Q8HR PRN #20 tab 10/17/18 Review of Systems - Review of Systems Constitutional: States: no symptoms reported EENTM: States: no symptoms reported Cardiology: States: no symptoms reported Gastrointestinal/Abdominal: States: no symptoms reported Genitourinary: States: no symptoms reported Musculoskeletal: States: see HPI Skin: States: no symptoms reported Neurological: States: no symptoms reported Endocrine: States: no symptoms reported All other Systems: No Change from Baseline Past Medical History (General) - Patient Medical History Hx Seizures: No Hx Stroke: No Hx Asthma: No Hx of COPD: No Hx Cardiac Disorders: No Hx Congestive Heart Failure: No Hx Pacemaker: No Hx Hypertension: Yes Hx Thyroid Disease: Yes Hx Diabetes: No Hx Renal Disease: No Hx Cancer: Yes - Breast Hx MRSA: No Surgical History: tonsillectomy, other - Vaccination History Hx Influenza Vaccination: Yes - 2018 Hx Pneumococcal Vaccination: Yes - 2018 - Social History Hx Tobacco Use: No Hx Alcohol Use: No Hx Substance Use: No Hx Physical Abuse: No Hx Emotional Abuse: No Family Medical History - Family History Mother Family History: No Known Living Status: Hx Family Hypertension: Yes Hx Family Stroke: Yes Hx Family Diabetes: Yes Father Family History: No Known Living Status: Hx Family Asthma: No Hx Family Congestive Heart Failure: No Hx Family Hypertension: No Hx Family Stroke: No Hx Cardiac Disease: No Hx Family Diabetes: No Hx Family Cancer: Yes - stomach cancer Physical Exam - Physical Exam General Appearance: Alert, Comfortable, No apparent distress Eye Exam: bilateral normal Ears, Nose, Throat: hearing grossly normal, normal pharynx Neck: full range of motion, supple Respiratory: lungs clear, normal breath sounds, no respiratory distress, no accessory muscle use Cardiovascular/Chest: normal peripheral pulses, no edema, other - egular rate Peripheral Pulses: radial,right: 2+, radial,left: 2+ Gastrointestinal/Abdominal: non tender, soft Rectal Exam: deferred Back Exam: no CVA tenderness, no vertebral tenderness Extremity: normal range of motion - passive, no pedal edema, no calf tenderness, normal capillary refill, other - see history of present illness Neurologic: electrician ship II-XII nml as tested, alert, normal mood/affect, oriented x 3 Skin Exam: normal color Comments: Vital Signs - 24 hr 10/17/18 15:05 Temperature 98.5 F Pulse Rate [ 77 left brachial] Respiratory 18 Rate Blood Pressure 155/68 [left brachial] O2 Sat by Pulse 96 Oximetry Progress - Progress Progress: 10/17/18 16:24 the patient is an 88-year-old female presenting to the emergency room secondary to pain in her right hip and proximal thigh after a fall today. X- rays of the pelvis, right hip and femur show no evidence of any fracture or dislocation. Diagnosis will be right hip strain. The patient is to ambulate only with her walker. She is at a high risk for further falls. She does understand this and has agreed. she is to follow back up with primary care doctor next week. ER warnings were given. Departure - Departure Clinical Impression: Fall at home Qualifiers: Encounter type: initial encounter Qualified Code(s): W19.XXXA - Unspecified fall, initial encounter; Y92.009 - Unspecified place in unspecified non- institutional (private) residence as the place of occurrence of the external cause Strain of right hip Qualifiers: Encounter type: initial encounter Qualified Code(s): S76.011A - Strain of muscle, fascia and tendon of right hip, initial encounter Disposition: Discharge to Home or Self Care Condition: Fair Departure Forms: ED Discharge - Pt. Copy, Patient Portal Self Enrollment Diet: regular diet Activity: increase activity as tolerated - use your walker Referrals: Malik Guillaume MD [Primary Care Provider] - 1-2 Weeks Prescriptions: Tramadol HCl 50 mg PO Q8HR PRN #20 tab PRN Reason: Moderate To Severe Pain Home Medications: Ambulatory Orders Acetamin W/Cod #3 Tab [Tylenol w/CODEINE #3] 1 - 2 tablet PO Q4H PRN 07/06/18 Anastrozole [Arimidex] 1 mg PO DAILY 07/06/18 Dexlansoprazole [Dexilant] 60 mg PO DAILY 07/06/18 Irbesartan [Avapro] 300 mg PO DAILY 07/06/18 Meclizine HCl [Meclizine 25] 25 mg PO DAILY 07/06/18 Rosuvastatin Calcium [Crestor] 40 mg PO DAILY 07/06/18 Tamsulosin [Flomax] 0.4 mg PO DAILY 07/06/18 Temazepam 30 mg PO BEDTIME 07/06/18 Cefdinir [Omnicef] 300 mg PO BID #8 cap 07/10/18 Levothyroxine Sodium [Synthroid] 88 mcg PO QDAC #60 tab 07/10/18 Metoprolol Succinate [Toprol Xl] 25 mg PO DAILY #30 tab.er.24 07/10/18 Tramadol HCl 50 mg PO Q8HR PRN #20 tab 10/17/18 Additional Instructions: the patient is an 88-year-old female presenting to the emergency room secondary to pain in her right hip and proximal thigh after a fall today. X- rays of the pelvis, right hip and femur show no evidence of any fracture or dislocation. Diagnosis will be right hip strain. The patient is to ambulate only with her walker. She is at a high risk for further falls. She does und erstand this and has agreed. she is to follow back up with primary care doctor next week. ER warnings were given.
[2018-10-17 16:49] VITALS: BP 147/67; O2SAT 93
== END 2018-10-17 16:48 | disposition home or self-care (01) ==
LOC: ER 15:02
DX: S76.011A Strain of muscle, fascia and tendon of right hip, initial encounter (principal); I10 Essential (primary) hypertension; E07.9 Disorder of thyroid, unspecified; Z85.3 Personal history of malignant neoplasm of breast; Z79.899 Other long term (current) drug therapy; W18.39XA Other fall on same level, initial encounter; Y92.9 Unspecified place or not applicable

== ENCOUNTER 2018-10-18 08:55 | Emergency (ER) | payer OTHER ==
[2018-10-18 09:42] VITALS: TEMP 96.6
[2018-10-18] MEDS ORDERED: IPRATROPIUM/ALBUTEROL 3 ML VIAL NEB ONE (09:54)
--- NOTE | 2018-10-18 10:19 | ED.PDOC ---
History of Present Illness - General Chief Complaint: General Stated Complaint: pain right eye.right arm pain,right hip pain Time Seen by Provider: 10/18/18 09:41 Source: patient, family - Exam Limitations: no limitations - History of Present Illness Initial Comments: Leona Robbins 88 y/o female came to ER stating initially that her right eye was hurting the last 3 days but was telling she fell 3 days ago and her right pelvis was achy as well as her right arm.This morning according to walking on her walker she slipped and could not get up the floor so ems was called to help him get up.Denies passing out ,no chest pains no SOB. Timing/Duration: 1-3 hours Severity: moderate Improving Factors: rest Worsening Factors: movement Associated Symptoms: other - see hpi Allergies/Adverse Reactions: Allergies NO KNOWN ALLERGY Allergy (Verified 10/03/12 06:50) Home Medications: Ambulatory Orders Acetamin W/Cod #3 Tab [Tylenol w/CODEINE #3] 1 - 2 tablet PO Q4H PRN 07/06/18 Anastrozole [Arimidex] 1 mg PO DAILY 07/06/18 Dexlansoprazole [Dexilant] 60 mg PO DAILY 07/06/18 Irbesartan [Avapro] 300 mg PO DAILY 07/06/18 Meclizine HCl [Meclizine 25] 25 mg PO DAILY 07/06/18 Rosuvastatin Calcium [Crestor] 40 mg PO DAILY 07/06/18 Tamsulosin [Flomax] 0.4 mg PO DAILY 07/06/18 Temazepam 30 mg PO BEDTIME 07/06/18 Levothyroxine Sodium [Synthroid] 88 mcg PO QDAC #60 tab 07/10/18 Acetaminophen W/ Codeine [Tylenol w/Codeine 300-30 mg] 1 tab PO Q6HRS PRN #30 tab 10/18/18 Aspirin [Aspirin Adult Low Dose] 81 mg PO DAILY 10/18/18 Metoprolol Succinate [Toprol Xl] 25 mg PO BID 10/18/18 Review of Systems - Review of Systems Constitutional: States: no symptoms reported EENTM: States: no symptoms reported Respiratory: States: no symptoms reported Cardiology: States: no symptoms reported Gastrointestinal/Abdominal: States: no symptoms reported Genitourinary: States: no symptoms reported Musculoskeletal: States: see HPI, joint pain Skin: States: no symptoms reported Neurological: States: no symptoms reported Endocrine: States: no symptoms reported Past Medical History (General) - Patient Medical History Hx Seizures: No Hx Stroke: No Hx Dementia: No Hx Asthma: No Hx of COPD: No Hx Cardiac Disorders: No Hx Congestive Heart Failure: No Hx Pacemaker: No Hx Hypertension: Yes - takes meds Hx Thyroid Disease: Yes - takes meds Hx Diabetes: No Hx Gastroesophageal Reflux: No Hx Renal Disease: No Hx Cancer: Yes - Left Breast Hx of HIV: No Hx Hepatitis C: No Hx MRSA: No Surgical History: cholecystectomy, tonsillectomy, other - mastectomy - Vaccination History Hx Tetanus, Diphtheria Vaccination: Yes Hx Influenza Vaccination: Yes Hx Pneumococcal Vaccination: Yes Immunizations Up to Date: Yes - Social History Hx Tobacco Use: No Hx Alcohol Use: Yes - Occasional Hx Substance Use: No Hx Substance Use Treatment: No Hx Depression: No Feels Threatened In Home Enviroment: No Feels Threatened In a Relationship: No Hx Physical Abuse: No Hx Emotional Abuse: No Hx Suspected Abuse: No - Activities of Daily Living Patient Lives Alone: No Grooming Ability: Independent Eating (Feeding) Ability: Independent Toileting Ability: Standby Assistance - Female History Patient is a Female of Child Bearing Age (10 -59 yrs old): No Patient : No - Triage Comment ED Triage Comment: Pt triaged upon arrival of EMS. R leg less lift ability. Bilateral pedal pulses strong. R arm upper arm pain '8'. Skin warm and dry and pink. Family Medical History - Family History Mother Family History: No Known Living Status: Hx Family Hypertension: Yes Hx Family Stroke: Yes Hx Family Diabetes: Yes Father Family History: No Known Living Status: Hx Family Asthma: No Hx Family Congestive Heart Failure: No Hx Family Hypertension: No Hx Family Stroke: No Hx Cardiac Disease: No Hx Family Diabetes: No Hx Family Cancer: Yes - stomach cancer Physical Exam - Physical Exam General Appearance: Alert, Comfortable, No apparent distress, Other - speech fluent Eye Exam: bilateral normal, bilateral other - both eyes dry;old bruising right eye able to close open /eyes Ears, Nose, Throat: hearing grossly normal, normal ENT inspection, normal pharynx Neck: supple, normal inspection Respiratory: chest non-tender, lungs clear, normal breath sounds, no respiratory distress Cardiovascular/Chest: regular rate, rhythm, no murmur Peripheral Pulses: radial,right: 2+, radial,left: 2+ Gastrointestinal/Abdominal: normal bowel sounds, non tender, soft, no organomegaly Back Exam: no CVA tenderness, no vertebral tenderness Extremity: no pedal edema Neurologic: no motor/sensory deficits, alert, oriented x 3, other - negative pronator dift Skin Exam: normal color, warm/dry, other - bruising thighs Progress - Progress Progress: 10/18/18 10:22 Vital Signs - 8 hr 10/18/18 09:25 Temperature 96.6 F L Pulse Rate [ 74 Right Radial] Respiratory 14 Rate Blood Pressure 145/68 [Left Arm] O2 Sat by Pulse 98 Oximetry 10/18/18 12:[address] Barrera and reviewed Ct-Pelvis regarding greater trochanteric fracture non displaced and stable advised to use walker for ambulating. - Results/Orders Results/Orders: 10/18/18 10:22 IV Care:Saline Lock per Protoc QSHIFT URINALYSIS Stat Laboratory Results - last 24 hr 10/18/18 11:19 WBC 7.4 RBC 4.43 Hgb 12.0 Hct 37.8 MCV 85.4 MCH 27.0 MCHC 31.6 L RDW 17.4 H Plt Count 191 MPV 7.2 L Absolute Neuts (auto) 5.70 Absolute Lymphs (auto) 0.90 L Absolute Monos (auto) 0.60 Absolute Eos (auto) 0.10 Absolute Basos (auto) 0.10 Neutrophils % 77.1 Lymphocytes % 12.4 L Monocytes % 8.1 Eosinophils % 1.5 Basophils % 0.9 PT 9.9 INR 0.99 PTT (SP) 25.0 Sodium 138 Potassium 4.2 Chloride 106 Carbon Dioxide 23 Anion Gap 13.2 BUN 31 H Creatinine 0.94 BUN/Creatinine Ratio 33.0 H Random Glucose 106 H Serum Osmolality 282.6 Calcium 8.9 Magnesium 1.9 Total Bilirubin 0.8 Direct Bilirubin 0.1 Indirect Bilirubin 0.7 AST 19 ALT 15 Alkaline Phosphatase 65 Creatine Kinase 70 CK-MB (CK-2) 1.8 CK-MB (CK-2) % 2.57 Troponin I < 0.02 Serum Total Protein 6.6 Albumin 3.6 Discuss all test result with patient and also findings of Pelvis Ct findings of non displaced right greater trochanteric fracture which had been reviewed by orthopedist that no surgical intervention needed at this time that she needs to use walker. - EKG/XRAY/CT XRAY: chest - no acute changes CT Ordered: Yes - Pelvis-right greater throchanter fracture non displaced Departure - Departure Clinical Impression: Pain of right hip, Dry eyes, bilateral Fall at home Qualifiers: Encounter type: initial encounter Qualified Code(s): W19.XXXA - Unspecified fall, initial encounter; Y92.009 - Unspecified place in unspecified non- institutional (private) residence as the place of occurrence of the external cause Fracture of greater trochanter of femur Qualifiers: Encounter type: initial encounter Fracture type: closed Fracture alignment: nondisplaced Laterality: right Qualified Code(s): S72.114A - Nondisplaced fracture of greater trochanter of right femur, initial encounter for closed fracture Time of Disposition: 12:04 Disposition: Discharge to Home or Self Care Condition: Fair Departure Forms: ED Discharge - Pt. Copy, Patient Portal Self Enrollment Instructions: Hip Fracture (DC), Hip Fracture Activity: ambulate only with walker Referrals: Malik Guillaume MD [Primary Care Provider] - 1-2 Weeks Prescriptions: Acetaminophen W/ Codeine [Tylenol w/Codeine 300-30 mg] 1 tab PO Q6HRS PRN #30 tab PRN Reason: Pain Home Medications: Ambulatory Orders Acetamin W/Cod #3 Tab [Tylenol w/CODEINE #3] 1 - 2 tablet PO Q4H PRN 07/06/18 Anastrozole [Arimidex] 1 mg PO DAILY 07/06/18 Dexlansoprazole [Dexilant] 60 mg PO DAILY 07/06/18 Irbesartan [Avapro] 300 mg PO DAILY 07/06/18 Meclizine HCl [Meclizine 25] 25 mg PO DAILY 07/06/18 Rosuvastatin Calcium [Crestor] 40 mg PO DAILY 07/06/18 Tamsulosin [Flomax] 0.4 mg PO DAILY 07/06/18 Temazepam 30 mg PO BEDTIME 07/06/18 Levothyroxine Sodium [Synthroid] 88 mcg PO QDAC #60 tab 07/10/18 Acetaminophen W/ Codeine [Tylenol w/Codeine 300-30 mg] 1 tab PO Q6HRS PRN #30 tab 10/18/18 Aspirin [Aspirin Adult Low Dose] 81 mg PO DAILY 10/18/18 Metoprolol Succinate [Toprol Xl] 25 mg PO BID 10/18/18 Additional Instructions: Follow up with Dr. Barrera orthopedist 31 Oct 2018 for recheck;Also keep appointment with eyeglass fitter as scheduled;Return to ER as needed
--- NOTE | 2018-10-18 11:25 | RAD ---
EXAM DESCRIPTION: Chest,1 View CLINICAL HISTORY: pain/fall COMPARISON: July 10, 2018 FINDINGS: The cardiac silhouette is slightly enlarged but stable from the prior study. Mediastinal contours are otherwise unremarkable. There is no airspace consolidation or pleural effusion. Surgical clips in the left axillary. Degenerative changes in both shoulders. There is no pneumothorax or acute fracture. IMPRESSION: Stable borderline cardiomegaly, degenerative and postoperative changes. No acute intrathoracic abnormality. Electronically signed by: Lamont Covington MD 10/18/2018 11:22 AM [facility]
--- NOTE | 2018-10-18 11:26 | CT ---
EXAM DESCRIPTION: Pelvis CLINICAL HISTORY: 88 years Female, fall/pain COMPARISON: Radiograph of the pelvis dated 10/09/2018. TECHNIQUE: Contiguous axial images through the pelvis were obtained without intravenous contrast administration. Sagittal and coronal reconstructions were reviewed. This exam was performed according to our departmental dose-optimization program, which includes automated exposure control, adjustment of the mA and/or kV according to patient size and/or use of iterative reconstruction technique. FINDINGS: The visualized bones appear osteopenic. Moderate to severe degenerative changes are identified in the right hip joint and severe degenerative changes are identified in the left hip joint. Nondisplaced fracture of the right greater trochanter is identified. The pelvic ring is intact. No other acute fracture is visualized. Degenerative changes are identified in the symphysis pubis as well. Constipation. Colonic diverticulosis. Remainder of the visualized intrapelvic contents appear normal. IMPRESSION: 1. Nondisplaced fracture of the right greater trochanter is noted. 2. 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 Electronically signed by: Yudelka Erickson MD 10/18/2018 11:23 AM [facility]
--- NOTE | 2018-10-18 11:31 | RAD ---
EXAM DESCRIPTION: Humerus,Right CLINICAL HISTORY: 88 years Female, pain/fall COMPARISON: None. TECHNIQUE: 2 views of the right humerus were obtained. FINDINGS: The visualized bones appear mildly osteopenic. No acute fracture or dislocation. Degenerative changes are identified in the glenohumeral joint. IMPRESSION: No acute radiographic abnormality is noted in the right humerus. Electronically signed by: Yudelka Erickson MD 10/18/2018 11:28 AM [facility]
[2018-10-18 12:37] VITALS: BP 139/83; O2SAT 90
== END 2018-10-18 12:35 | disposition home or self-care (01) ==
LOC: ER 08:59
DX: S72.114A Nondisplaced fracture of greater trochanter of right femur, initial encounter for closed fracture (principal); H04.123 Dry eye syndrome of bilateral lacrimal glands; I10 Essential (primary) hypertension; E07.9 Disorder of thyroid, unspecified; W01.0XXA Fall on same level from slipping, tripping and stumbling without subsequent striking against object, initial encounter; Y92.9 Unspecified place or not applicable; Z85.3 Personal history of malignant neoplasm of breast; Z79.899 Other long term (current) drug therapy; Z79.82 Long term (current) use of aspirin

== ENCOUNTER → 2018-10-25 | Outpatient (CLI) | payer OTHER ==
--- NOTE | 2018-10-25 13:36 | RAD ---
Single frontal view pelvis. Two-view right hip. Indication: S72.114A Comparison: CT October 18, 2018. Impression: The nondisplaced right greater trochanter fracture is faintly visualized and better characterized on the recent CT scan. No new right hip or pelvic fracture identified, however evaluation is markedly limited given the severe osteopenia. Evaluation for fracture is limited given the degree of osteopenia. If high clinical concern for acute fracture, correlation with MRI recommended given its greater sensitivity in the osteopenic patient. If the patient cannot tolerate MRI imaging or more urgent imaging is required, CT could be performed, however it is less sensitive in the osteopenic patient when compared to MRI. Severe bilateral hip osteoarthritis redemonstrated. Lower lumbar disc disease. Mild bilateral sacroiliac joint osteoarthritis. Osteopenia. If this is a new finding, DEXA scan recommended as well as evaluation for possible osteoporosis treatment. Electronically signed by: Onofre Zimmer MD 10/25/2018 1:33 PM [employer]
== END ==
LOC: RAD 09:32
PROVIDERS: ATTEND Orthopaedic Surgery
DX: S72.114A Nondisplaced fracture of greater trochanter of right femur, initial encounter for closed fracture (principal); M16.0 Bilateral primary osteoarthritis of hip; M51.86 Other intervertebral disc disorders, lumbar region; M85.80 Other specified disorders of bone density and structure, unspecified site

== ENCOUNTER → 2018-12-13 | Outpatient (CLI) | payer OTHER | LOC: GRHH 08:54 | PROVIDERS: ATTEND Family Medicine | DX: E78.5 Hyperlipidemia, unspecified (principal); I10 Essential (primary) hypertension ==

== ENCOUNTER 2019-04-16 09:26 | Emergency (ER) | payer OTHER ==
[2019-04-16 09:37] VITALS: TEMP 97.1; O2SAT 98
--- NOTE | 2019-04-16 09:54 | ED.PDOC ---
History of Present Illness - General Chief Complaint: General Stated Complaint: dizziness Time Seen by Provider: 04/16/19 09:35 Source: patient - History of Present Illness Initial Comments: WAKES UP WITH DIZZINESS AND NAUSEA, HAS A HX OF VERTIGO AND TAKES MECLIZINE EVERY OTHER DAY. DENIES ANY FEVER OR TINNITUS OR DIAPHORESIS OR CHEST PAIN OR PALPITATIONS. SHE HAS HTN AND IS ON METOPROLOL. Timing/Duration: 1-3 hours Severity: moderate Improving Factors: nothing Worsening Factors: nothing Associated Symptoms: nausea/vomiting Allergies/Adverse Reactions: Allergies NO KNOWN ALLERGY Allergy (Verified 04/16/19 09:39) Home Medications: Ambulatory Orders Dexlansoprazole [Dexilant] 60 mg PO DAILY 07/06/18 Irbesartan [Avapro] 300 mg PO DAILY 07/06/18 Meclizine HCl [Meclizine 25] 25 mg PO TID PRN 07/06/18 Temazepam 30 mg PO BEDTIME PRN 07/06/18 Levothyroxine Sodium [Synthroid] 88 mcg PO QDAC #60 tab 07/10/18 Aspirin [Aspirin Adult Low Dose] 81 mg PO DAILY 10/18/18 Metoprolol Succinate [Toprol Xl] 25 mg PO DAILY 10/18/18 Fluticasone Propionate (Nasal) [Eql Fluticasone Propionat] 50 mcg NA BID 10/20/18 Rosuvastatin Calcium [Crestor] 40 mg PO DAILY 10/20/18 Tamsulosin HCl [Flomax] 0.4 mg PO DAILY 04/16/19 Review of Systems - Review of Systems Constitutional: States: no symptoms reported EENTM: States: no symptoms reported Respiratory: States: no symptoms reported Cardiology: States: no symptoms reported Gastrointestinal/Abdominal: States: nausea Genitourinary: States: no symptoms reported Musculoskeletal: States: no symptoms reported Skin: States: no symptoms reported Neurological: States: no symptoms reported Endocrine: States: no symptoms reported Hematologic/Lymphatic: States: no symptoms reported Past Medical History (General) - Patient Medical History Hx Seizures: No Hx Stroke: No Hx Dementia: No Hx Asthma: No Hx of COPD: No Hx Cardiac Disorders: No Hx Congestive Heart Failure: No Hx Pacemaker: No Hx Hypertension: Yes - takes meds Hx Thyroid Disease: Yes - takes meds Hx Diabetes: No Hx Gastroesophageal Reflux: No Hx Renal Disease: No Hx Cancer: Yes - Left Breast Hx of HIV: No Hx Hepatitis C: No Hx MRSA: No - Vaccination History Hx Tetanus, Diphtheria Vaccination: No Hx Influenza Vaccination: Yes Hx Pneumococcal Vaccination: Yes - Social History Hx Tobacco Use: No Hx Alcohol Use: No Hx Substance Use: No Hx Substance Use Treatment: No Hx Depression: No Hx Physical Abuse: No Hx Emotional Abuse: No Hx Suspected Abuse: No - Female History Patient : No Family Medical History - Family History Mother Family History: No Known Living Status: Hx Family Hypertension: Yes Hx Family Stroke: Yes Hx Family Diabetes: Yes Father Family History: No Known Living Status: Hx Family Asthma: No Hx Family Congestive Heart Failure: No Hx Family Hypertension: No Hx Family Stroke: No Hx Cardiac Disease: No Hx Family Diabetes: No Hx Family Cancer: Yes - stomach cancer Physical Exam - Physical Exam General Appearance: Alert, Well Developed, Well Groomed, Well Hydrated, Well Nourished Eye Exam: bilateral normal Ears, Nose, Throat: hearing grossly normal, normal ENT inspection, normal pharynx Neck: non-tender, full range of motion, supple Respiratory: chest non-tender, lungs clear, normal breath sounds, no respiratory distress Cardiovascular/Chest: normal peripheral pulses, regular rate, rhythm, no edema, no gallop, no JVD Peripheral Pulses: radial,right: 2+, radial,left: 2+ Progress - Progress Progress: 04/16/19 11:23 04/16/19 11:18 EKG Assessment ONCE 04/16/19 11:30 EKG STAT Laboratory Results WBC 4.3 K/mm3 (4.8-10.8) L 04/16/19 09:58 RBC 4.58 M/mm3 (4.20-5.40) 04/16/19 09:58 Hgb 12.4 gm/dL (12.0-16.0) 04/16/19 09:58 Hct 38.4 % (36.0-47.0) 04/16/19 09:58 MCV 83.7 fl (81.0-99.0) 04/16/19 09:58 MCH 27.2 pg (27.0-31.0) 04/16/19 09:58 MCHC 32.5 g/dL (33.0-37.0) L 04/16/19 09:58 RDW 16.7 % (11.5-14.5) H 04/16/19 09:58 Plt Count 216 K/mm3 (130-400) 04/16/19 09:58 MPV 7.3 fl (7.40-10.4) L 04/16/19 09:58 Absolute Neuts (auto) 2.60 K/uL (1.8-6.8) 04/16/19 09:58 Absolute Lymphs (auto) 0.90 K/uL (1.0-3.4) L 04/16/19 09:58 Absolute Monos (auto) 0.50 K/uL (0.2-0.8) 04/16/19 09:58 Absolute Eos (auto) 0.20 K/uL (0.0-0.4) 04/16/19 09:58 Absolute Basos (auto) 0.10 K/uL (0.0-0.1) 04/16/19 09:58 Neutrophils % 60.7 % (42.0-78.0) 04/16/19 09:58 Lymphocytes % 21.8 % (20.0-50.0) 04/16/19 09:58 Monocytes % 12.1 % (2.0-9.0) H 04/16/19 09:58 Eosinophils % 4.1 % (1.0-5.0) 04/16/19 09:58 Basophils % 1.3 % (0.0-2.0) 04/16/19 09:58 Sodium 139 mmol/L (135-145) 04/16/19 09:58 Potassium 4.0 mmol/L (3.6-5.0) 04/16/19 09:58 Chloride 108 mmol/L (101-111) 04/16/19 09:58 Carbon Dioxide 21 mmol/L (21-31) 04/16/19 09:58 Anion Gap 14.0 (12-18) 04/16/19 09:58 BUN 25 mg/dL (7-18) H 04/16/19 09:58 Creatinine 1.06 mg/dL (0.6-1.3) 04/16/19 09:58 BUN/Creatinine Ratio 23.6 (10-20) H 04/16/19 09:58 Random Glucose 123 mg/dL (70-105) H 04/16/19 09:58 Serum Osmolality 283.3 mOsm/L (275-295) 04/16/19 09:58 Calcium 9.1 mg/dL (8.4-10.2) 04/16/19 09:58 Total Bilirubin 0.5 mg/dL (0.2-1.0) 04/16/19 09:58 AST 23 IU/L (10-42) 04/16/19 09:58 ALT 14 IU/L (10-60) 04/16/19 09:58 Alkaline Phosphatase 64 IU/L (42-121) 04/16/19 09:58 Troponin I < 0.02 ng/mL (0.01-0.05) 04/16/19 09:58 Serum Total Protein 6.7 gm/dL (6.4-8.2) 04/16/19 09:58 Albumin 3.7 g/dl (3.2-5.5) 04/16/19 09:58 Globulin 3.0 gm/dL (2.3-3.5) 04/16/19 09:58 Albumin/Globulin Ratio 1.2 (1.1-1.9) 04/16/19 09:58 Urine Color Yellow (Yellow) 04/16/19 10:10 Urine Appearance Clear (Clear) 04/16/19 10:10 Urine pH 6.0 (4.5-7.8) 04/16/19 10:10 Ur Specific Dobson 1.010 (1.005-1.030) 04/16/19 10:10 Urine Protein Negative mg/dL 04/16/19 10:10 Urine Glucose (UA) Negative mg/dL (Negative) 04/16/19 10:10 Urine Ketones Negative mg/dL (NEGATIVE) 04/16/19 10:10 Urine Blood Trace-lysed (Negative) H 04/16/19 10:10 Urine Nitrite Negative 04/16/19 10:10 Urine Bilirubin Negative (NEGATIVE) 04/16/19 10:10 Urine Urobilinogen 0.2 mg/dL (0.2-1.0) 04/16/19 10:10 Ur Leukocyte Esterase Trace (Negative) H 04/16/19 10:10 Urine RBC 0-1 /hpf 04/16/19 10:10 Urine WBC 1-3 /hpf 04/16/19 10:10 Ur Epithelial Cells 1-3 /hpf 04/16/19 10:10 Amorphous Sediment Trace 04/16/19 10:10 Urine Bacteria Rare 04/16/19 10:10 - Results/Orders Results/Orders: CT OF THE BRAIN-NO ACUTE PROCESS. CXR: NO ACUTE PROCESS. THE PATIENT FEELS BETTER. WILL DC WITH PLAN TO F/U WITH HER PCP AND IF VERTIGO PERSISTS WILL NEED ENT CONSULTATION. Departure - Departure Clinical Impression: Vertigo Time of Disposition: 11:24 Disposition: Discharge to Home or Self Care Condition: Good Departure Forms: ED Discharge - Pt. Copy, Patient Portal Self Enrollment Diet: resume usual diet Referrals: Malik Guillaume MD [Active Staff] - 1-2 Weeks Home Medications: Ambulatory Orders Dexlansoprazole [Dexilant] 60 mg PO DAILY 07/06/18 Irbesartan [Avapro] 300 mg PO DAILY 07/06/18 Meclizine HCl [Meclizine 25] 25 mg PO TID PRN 07/06/18 Temazepam 30 mg PO BEDTIME PRN 07/06/18 Levothyroxine Sodium [Synthroid] 88 mcg PO QDAC #60 tab 07/10/18 Aspirin [Aspirin Adult Low Dose] 81 mg PO DAILY 10/18/18 Metoprolol Succinate [Toprol Xl] 25 mg PO DAILY 10/18/18 Fluticasone Propionate (Nasal) [Eql Fluticasone Propionat] 50 mcg NA BID 10/20/18 Rosuvastatin Calcium [Crestor] 40 mg PO DAILY 10/20/18 Tamsulosin HCl [Flomax] 0.4 mg PO DAILY 04/16/19 Additional Instructions: CONTINUE WITH YOU MECFLIZINE 2-3 TIMES DAY.
[2019-04-16] MEDS: MECLIZINE HCL 12.5 MG TAB PO ONE (09:55)
--- NOTE | 2019-04-16 10:08 | RAD ---
EXAM DESCRIPTION: Chest,1 View CLINICAL HISTORY: 88 years Female, SOB COMPARISON: Previous study October 18, 2018 TECHNIQUE: AP portable chest. FINDINGS: Heart size is large with mildly prominent central pulmonary vascularity. No carlos congestive failure. Multiple surgical clips in left axilla. No consolidating infiltrate. No pulmonary mass or worrisome nodule. No pneumothorax or pleural effusion. Severe arthritic changes in the shoulders bilaterally. IMPRESSION: Large heart without congestive failure. Electronically signed by: Francois Esquivel MD 04/16/2019 10:06 AM CDT
--- NOTE | 2019-04-16 10:45 | CT ---
EXAM DESCRIPTION: Head CLINICAL HISTORY: VERTIGO COMPARISON: CT head 11/11/2009. TECHNIQUE: Non contrast cranial CT with multiplanar reconstructions. FINDINGS: No acute intracranial hemorrhage, mass, or mass effect. 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 Right superior [place] hypodensity appears unchanged. Moderate diffuse cerebral volume loss, progressed compared to prior examination. No hydrocephalus. The hill-white matter differentiation is intact. Periventricular and deep white matter hypodensities are nonspecific but likely related to chronic microvascular ischemic changes. No displaced calvarial fracture. The visualized paranasal sinuses and the mastoids are clear. IMPRESSION: 1. No acute intracranial hemorrhage or transcortical infarct. 2. 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 3. 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 More sensitive evaluation for acute/subacute ischemia can be obtained with MRI. 4. Moderate chronic microvascular ischemic changes and cerebral volume loss which has progressed compared to prior examination in 2009. This exam was performed according to our departmental dose-optimization program, which includes automated exposure control, adjustment of the mA and/or kV according to patient size and/or use of iterative reconstruction technique. Electronically signed by: Vlad Sampson DO 04/16/2019 10:43 AM CDT
[2019-04-16 12:03] VITALS: BP 143/51
== END 2019-04-16 11:50 | disposition home or self-care (01) ==
LOC: ER 09:26
DX: R42 Dizziness and giddiness (principal); I10 Essential (primary) hypertension; E07.9 Disorder of thyroid, unspecified; Z79.899 Other long term (current) drug therapy; Z79.82 Long term (current) use of aspirin; Z85.3 Personal history of malignant neoplasm of breast

== ENCOUNTER 2019-04-21 11:36 | Emergency (ER) | payer OTHER ==
--- NOTE | 2019-04-21 12:33 | ED.PDOC ---
History of Present Illness - General Chief Complaint: Trauma Stated Complaint: s/p fall and hit head Time Seen by Provider: 04/21/19 12:04 Additional Information: Pt w cc of slip and fall with bump to head CATH LAB. Pt has balance problems in general and slipped today on hard floor, fell backward and hit head. No LOC. Pt denies any pain presently. Neg neck pain. Neg weakness, CP, abd pain, SOB, dizziness, RENE. Neg N/V. Pt w h/o frequent falls per family and pt. Pt is not on a blood thinner. - History of Present Illness Allergies/Adverse Reactions: Allergies NO KNOWN ALLERGY Allergy (Verified 04/16/19 09:39) Home Medications: Ambulatory Orders Dexlansoprazole [Dexilant] 60 mg PO DAILY 07/06/18 Irbesartan [Avapro] 300 mg PO DAILY 07/06/18 Meclizine HCl [Meclizine 25] 25 mg PO TID PRN 07/06/18 Temazepam 30 mg PO BEDTIME PRN 07/06/18 Levothyroxine Sodium [Synthroid] 88 mcg PO QDAC #60 tab 07/10/18 Aspirin [Aspirin Adult Low Dose] 81 mg PO DAILY 10/18/18 Metoprolol Succinate [Toprol Xl] 25 mg PO DAILY 10/18/18 Fluticasone Propionate (Nasal) [Eql Fluticasone Propionat] 50 mcg NA BID 10/20/18 Rosuvastatin Calcium [Crestor] 40 mg PO DAILY 10/20/18 Tamsulosin HCl [Flomax] 0.4 mg PO DAILY 04/16/19 Review of Systems - Review of Systems Constitutional: States: no symptoms reported. Denies: fever, weakness EENTM: States: no symptoms reported. Denies: blurred vision Respiratory: States: no symptoms reported. Denies: short of breath Cardiology: States: no symptoms reported. Denies: chest pain Gastrointestinal/Abdominal: States: no symptoms reported. Denies: abdominal pain, nausea, vomiting Genitourinary: States: no symptoms reported. Denies: dysuria Musculoskeletal: States: no symptoms reported. Denies: muscle pain, neck pain Skin: States: no symptoms reported Neurological: States: no symptoms reported. Denies: numbness, paresthesia, weakness Endocrine: States: no symptoms reported Hematologic/Lymphatic: States: no symptoms reported All other Systems: Reviewed and Negative Past Medical History (General) - Patient Medical History Hx Seizures: No Hx Stroke: No Hx Dementia: No Hx Asthma: No Hx of COPD: No Hx Cardiac Disorders: No Hx Congestive Heart Failure: No Hx Pacemaker: No Hx Hypertension: Yes Hx Thyroid Disease: Yes - takes meds Hx Diabetes: No Hx Gastroesophageal Reflux: No Hx Renal Disease: No Hx Cancer: Yes - Left Breast Hx of HIV: No Hx Hepatitis C: No Hx MRSA: No Surgical History: appendectomy - Vaccination History Hx Tetanus, Diphtheria Vaccination: No Hx Influenza Vaccination: Yes Hx Pneumococcal Vaccination: Yes - Social History Hx Tobacco Use: No Hx Alcohol Use: No Hx Substance Use: No Hx Substance Use Treatment: No Hx Depression: No Hx Physical Abuse: No Hx Emotional Abuse: No Hx Suspected Abuse: No - Female History Patient : No Family Medical History - Family History Mother Family History: No Known Living Status: Hx Family Hypertension: Yes Hx Family Stroke: Yes Hx Family Diabetes: Yes Father Family History: No Known Living Status: Hx Family Asthma: No Hx Family Congestive Heart Failure: No Hx Family Hypertension: No Hx Family Stroke: No Hx Cardiac Disease: No Hx Family Diabetes: No Hx Family Cancer: Yes - stomach cancer Physical Exam - Physical Exam General Appearance: Alert, Comfortable, No apparent distress, Well Developed, Well Nourished Ears, Nose, Throat: normal ENT inspection, other - Scalp w large hematoma to right parietal region. Neg laceration. Mild TTP. Neck: non-tender, full range of motion, supple, normal inspection Respiratory: chest non-tender, normal breath sounds, no accessory muscle use Cardiovascular/Chest: regular rate, rhythm, no edema, no gallop, no JVD Gastrointestinal/Abdominal: normal bowel sounds, non tender, soft Back Exam: normal inspection, no CVA tenderness, no vertebral tenderness Extremity: normal range of motion, non-tender Neurologic: managing director II-XII nml as tested, no motor/sensory deficits, alert, normal mood/affect, oriented x 3 Skin Exam: normal color Progress - Progress Progress: 04/21/19 12:36 DDx: CHI, ICH, contusion, laceration 04/21/19 13:48 Pt rechecked and is feeling well, declines analgesics. Head CT is non-acute. Have d/w pt and family; pt w frequest similar falls, no indication/desire to perform formal w/u. Pt w hematoma only to scalp. CHI precautions discussed. VSS, pt NAD and looks clinically well, she is safe for dc w outpt f/u. Strict RTED precautions discussed. Pt voices understanding and willingness to comply. Copy of CT result given to family. Departure - Departure Clinical Impression: Closed head injury, Scalp hematoma Time of Disposition: 14:21 Disposition: Discharge to SNF Condition: Good Departure Forms: ED Discharge - Pt. Copy, Patient Portal Self Enrollment Instructions: DI for Trauma, Closed Head Injury Activity: ambulate only with walker Referrals: Peewee Kwan MD [Primary Care Provider] - 1-5 Days Home Medications: Ambulatory Orders Dexlansoprazole [Dexilant] 60 mg PO DAILY 07/06/18 Irbesartan [Avapro] 300 mg PO DAILY 07/06/18 Meclizine HCl [Meclizine 25] 25 mg PO TID PRN 07/06/18 Temazepam 30 mg PO BEDTIME PRN 07/06/18 Levothyroxine Sodium [Synthroid] 88 mcg PO QDAC #60 tab 07/10/18 Aspirin [Aspirin Adult Low Dose] 81 mg PO DAILY 10/18/18 Metoprolol Succinate [Toprol Xl] 25 mg PO DAILY 10/18/18 Fluticasone Propionate (Nasal) [Eql Fluticasone Propionat] 50 mcg NA BID 10/20/18 Rosuvastatin Calcium [Crestor] 40 mg PO DAILY 10/20/18 Tamsulosin HCl [Flomax] 0.4 mg PO DAILY 04/16/19 Additional Instructions: OTC Tylenol as needed for pain. Ice to area 15 minutes at a time, 3x a day, for 24 hours.
--- NOTE | 2019-04-21 12:56 | CT ---
EXAM: CT Head Without Intravenous Contrast CLINICAL HISTORY: CHI TECHNIQUE: Axial computed tomography images of the head/brain without intravenous contrast. Sagittal and coronal reformatted images were created and reviewed. This CT exam was performed using one or more of the following dose reduction techniques: automated exposure control, adjustment of the mA and/or kV according to patient size, and/or use of iterative reconstruction technique. COMPARISON: 04/16/2019. FINDINGS: Limitations: None. Brain: There is age related cortical atrophy and periventricular white matter hypodensity most consistent with chronic small ischemic change. No acute infarct, hemorrhage or mass. Ventricles: Unremarkable. No ventriculomegaly. Bones/joints: Unremarkable. No acute fracture. Soft tissues: New right posterior scalp hematoma is present. Sinuses: Unremarkable as visualized. No acute sinusitis. Mastoid air cells: Unremarkable as visualized. No mastoid effusion. IMPRESSION: 1. New right posterior scalp hematoma is present. 2. No acute change in the brain. Electronically signed by: Shelia Suresh MD 04/21/2019 12:54 PM CDT
[2019-04-21 14:40] VITALS: BP 158/80; TEMP 96.9; O2SAT 94
== END 2019-04-21 14:39 ==
LOC: ER 11:36
DX: S09.90XA Unspecified injury of head, initial encounter (principal); S00.03XA Contusion of scalp, initial encounter; I10 Essential (primary) hypertension; E07.9 Disorder of thyroid, unspecified; Z79.899 Other long term (current) drug therapy; Z85.3 Personal history of malignant neoplasm of breast; Z79.82 Long term (current) use of aspirin; Z91.81 History of falling; W01.0XXA Fall on same level from slipping, tripping and stumbling without subsequent striking against object, initial encounter; Y92.9 Unspecified place or not applicable

== ENCOUNTER 2019-05-22 17:44 | Inpatient (IN) | payer OTHER ==
--- NOTE | 2019-05-22 18:01 | ED.PDOC ---
History of Present Illness - General Chief Complaint: Trauma Stated Complaint: Fall, L leg discomfort, head lac Time Seen by Provider: 05/22/19 17:52 Source: patient, RN notes reviewed, Vital Signs reviewed, EMS notes reviewed Exam Limitations: no limitations - History of Present Illness Initial Comments: Per EMS, patient had mechanical fall onto left hip and left side of head. Occurred: just prior to arrival Severity: moderate Pain Location: head, pelvis, upper extremity Method of Injury: fall Improving Factors: immobilization Worsening Factors: movement Loss of Consciousness: no loss of consciousness Associated Symptoms (Fall): denies symptoms Allergies/Adverse Reactions: Allergies NO KNOWN ALLERGY Allergy (Verified 04/16/19 09:39) Home Medications: Ambulatory Orders Dexlansoprazole [Dexilant] 60 mg PO DAILY 07/06/18 Irbesartan [Avapro] 300 mg PO DAILY 07/06/18 Meclizine HCl [Meclizine 25] 25 mg PO TID PRN 07/06/18 Temazepam 30 mg PO BEDTIME PRN 07/06/18 Levothyroxine Sodium [Synthroid] 88 mcg PO QDAC #60 tab 07/10/18 Aspirin [Aspirin Adult Low Dose] 81 mg PO DAILY 10/18/18 Metoprolol Succinate [Toprol Xl] 25 mg PO DAILY 10/18/18 Fluticasone Propionate (Nasal) [Eql Fluticasone Propionat] 50 mcg NA BID 10/20/18 Rosuvastatin Calcium [Crestor] 40 mg PO DAILY 10/20/18 Tamsulosin HCl [Flomax] 0.4 mg PO DAILY 04/16/19 Review of Systems - Review of Systems Constitutional: States: no symptoms reported EENTM: States: no symptoms reported Respiratory: States: no symptoms reported Cardiology: States: no symptoms reported Gastrointestinal/Abdominal: States: no symptoms reported Genitourinary: States: no symptoms reported Musculoskeletal: States: see HPI, joint pain, joint swelling, muscle pain Skin: States: no symptoms reported Neurological: States: no symptoms reported Endocrine: States: no symptoms reported Hematologic/Lymphatic: States: no symptoms reported Past Medical History (General) - Patient Medical History Hx Seizures: No Hx Stroke: No Hx Dementia: No Hx Asthma: No Hx of COPD: No Hx Cardiac Disorders: No Hx Congestive Heart Failure: No Hx Pacemaker: No Hx Hypertension: Yes Hx Thyroid Disease: Yes - takes meds Hx Diabetes: No Hx Gastroesophageal Reflux: No Hx Renal Disease: No Hx Cancer: Yes - Left Breast Hx of HIV: No Hx Hepatitis C: No Hx MRSA: No - Vaccination History Hx Tetanus, Diphtheria Vaccination: No Hx Influenza Vaccination: Yes Hx Pneumococcal Vaccination: Yes - Social History Hx Tobacco Use: No Hx Alcohol Use: No Hx Substance Use: No Hx Substance Use Treatment: No Hx Depression: No Hx Physical Abuse: No Hx Emotional Abuse: No Hx Suspected Abuse: No - Female History Patient : No Family Medical History - Family History Mother Family History: No Known Living Status: Hx Family Hypertension: Yes Hx Family Stroke: Yes Hx Family Diabetes: Yes Father Family History: No Known Living Status: Hx Family Asthma: No Hx Family Congestive Heart Failure: No Hx Family Hypertension: No Hx Family Stroke: No Hx Cardiac Disease: No Hx Family Diabetes: No Hx Family Cancer: Yes - stomach cancer Physical Exam - Physical Exam General Appearance: Alert, Comfortable, Frail Head Injury: other - laceration to left parietal scalp, 3 cm. Eye Exam: bilateral normal ENT Exam: no evidence of ENT injury Neck Exam: other - in C collar Cardiovascular/Respiratory: regular rate, rhythm, no M/R/G Gastrointestinal/Abdominal: non tender, soft Extremity Exam: other - Tenderness to left shoulder, left hip Neurologic: account technician II-XII nml as tested, no motor/sensory deficits, oriented x 3 - Janet Coma Score Best Eye Response (Janet): (4) open spontaneously Best Verbal Response ([place]): (5) oriented Best Motor Response (Janet): (6) obeys commands Progress - Progress Progress: 05/22/19 19:29 CT head without acute injury. Left hip XR with comminuted intertrachanteric hip fx. Left shoulder and CXR without acute injury. C spine without acute injury but radiologist recommends CT chest to evaluate left apical lesion. 3 vanessa placed to left parietal scalp. Procedures - Laceration/Wound Repair Left Parietal Wound Length (cm): 3 Wound's Depth, Shape: superficial, linear Wound Explored: clean Wound Repaired With: vanessa Number of Sutures: 3 Departure - Departure Clinical Impression: Closed fracture of left hip, Laceration of scalp, Left pulmonary lesion Disposition: Discharge to Home or Self Care Departure Forms: ED Discharge - Pt. Copy, Patient Portal Self Enrollment Instructions: DI for Trauma Referrals: Peewee Kwan MD [Primary Care Provider] - 1-2 Weeks Home Medications: Ambulatory Orders Dexlansoprazole [Dexilant] 60 mg PO DAILY 07/06/18 Irbesartan [Avapro] 300 mg PO DAILY 07/06/18 Meclizine HCl [Meclizine 25] 25 mg PO TID PRN 07/06/18 Temazepam 30 mg PO BEDTIME PRN 07/06/18 Levothyroxine Sodium [Synthroid] 88 mcg PO QDAC #60 tab 07/10/18 Aspirin [Aspirin Adult Low Dose] 81 mg PO DAILY 10/18/18 Metoprolol Succinate [Toprol Xl] 25 mg PO DAILY 10/18/18 Fluticasone Propionate (Nasal) [Eql Fluticasone Propionat] 50 mcg NA BID 10/20/18 Rosuvastatin Calcium [Crestor] 40 mg PO DAILY 10/20/18 Tamsulosin HCl [Flomax] 0.4 mg PO DAILY 04/16/19 Decision To Admit - Decistion To Admit Decision to Admit Reason: Admit from ER - Left hip fracture Decision to Admit Date: 05/22/19 Decision to Admit Time: 19:34
--- NOTE | 2019-05-22 19:03 | RAD ---
EXAM DESCRIPTION: Chest,1 View CLINICAL HISTORY: 88 years Female fall COMPARISON: 04/16/2019 FINDINGS: Cardiac enlargement. Pulmonary hyperinflation. Degenerative changes in the shoulders bilaterally. Clips in the left axilla. Widened mediastinum. Calcified and tortuous aorta. No acute consolidation or evidence of edema. IMPRESSION: No acute abnormality is identified. Cardial megaly and COPD Electronically signed by: Missy Olsen MD 05/22/2019 7:01 PM CDT
--- NOTE | 2019-05-22 19:04 | RAD ---
EXAM DESCRIPTION: Pelvis,2 or More Views CLINICAL HISTORY: 88 years Female fall COMPARISON: 10/25/2018. TECHNIQUE: Single AP view of the pelvis. FINDINGS: Bony demineralization. Comminuted intertrochanteric fracture of the left hip with varus deformity. Degenerative changes of the hips bilaterally left greater than right which appears similar to the earlier exam. SI joints and symphysis appear intact. Degenerative changes the lower lumbar spine. IMPRESSION: Comminuted intertrochanteric fracture of the left hip with mild varus deformity Electronically signed by: Missy Olsen MD 05/22/2019 7:02 PM CDT
--- NOTE | 2019-05-22 19:05 | RAD ---
EXAM DESCRIPTION: Shoulder,Left 2 or More Views CLINICAL HISTORY: 88 years Female fall COMPARISON: None. TECHNIQUE: LEFT SHOULDER two view FINDINGS: Bony demineralization. Degenerative change at the AC joint. Degenerative change at the glenohumeral joint with sclerosis. Postsurgical changes of the left axilla. No acute fracture noted. Heart is enlarged. IMPRESSION: No acute fracture or dislocation identified. Degenerative change at the glenohumeral joint Electronically signed by: Missy Olsen MD 05/22/2019 7:04 PM CDT
--- NOTE | 2019-05-22 19:07 | CT ---
EXAM: CT Head and Cervical Spine Without Intravenous Contrast CLINICAL HISTORY: The patient is 88 years old and is Female; fall onto head TECHNIQUE: Axial computed tomography images of the head/brain and cervical spine without intravenous contrast. Sagittal and coronal reformatted images were created and reviewed. This CT exam was performed using one or more of the following dose reduction techniques: automated exposure control, adjustment of the mA and/or kV according to patient size, and/or use of iterative reconstruction technique. COMPARISON: No relevant prior studies available. FINDINGS: Brain: Periventricular and deep white matter hypodensities, most commonly due to nonspecific white matter chronic microvascular ischemia. Mild cerebral atrophy. Unchanged right parietal encephalomalacia. No hemorrhage. Ventricles: Unremarkable. No ventriculomegaly. Skull: No acute fracture. Sinuses: Unremarkable as visualized. No acute sinusitis. Mastoid air cells: Unremarkable as visualized. No mastoid effusion. Vertebrae: No spine fracture subluxation. Multilevel spine degenerative changes with disc height loss, osteophyte formation and facet arthrosis. Discs/spinal canal/neural foramina: No acute findings. No spinal canal stenosis. Other bones/joints: Cortical irregularity of the left first and second lateral ribs may represent nondisplaced fractures. Soft tissues: Left posterior parietal scalp/soft tissue swelling with foci of gas Vasculature: Vascular calcifications. Lung apices: Rounded groundglass opacity partially seen in the left lung apex. Bilateral apical pleural parenchymal scarring IMPRESSION: 1. No acute spine abnormality. No spine fracture or subluxation. 2. No acute intracranial findings. Unchanged right chronic findings. 3. Cortical irregularity of the left first and second lateral ribs may represent nondisplaced fractures. Correlate with point tenderness. 4. Rounded groundglass opacity partially seen in the left lung apex. Recommend CT chest for further evaluation. Electronically signed by: Roger Betancourt MD 05/22/2019 7:05 PM CDT
[2019-05-22] MEDS ORDERED: HYDROcodone 5MG/APAP 325MG 1 EA TAB PO ONE (19:58)
--- NOTE | 2019-05-22 20:25 | HP ---
SUPERVISING PHYSICIAN: Aida Mace MD CHIEF COMPLAINT: Left hip pain. HISTORY OF PRESENT ILLNESS: This is an 88-year-old female patient who came to the Emergency Room after sustaining a fall at [place]. She states she slipped on the floor, fell on her left side and had left hip pain. She was brought to the Emergency Room. She did have a laceration on the back of the left side of her head. There was no loss of consciousness. In the Emergency Room, her initial vital signs were temperature 97.3, heart rate 93, blood pressure 196/96. Shortly thereafter, her blood pressure went down to 165/80. Respiratory rate 18, O2 saturation 98% on room air. Laboratory studies were done and her urinalysis was negative. X-rays were done. Her left tibia/fibula x-ray showed no acute fracture identified. Her left ankle x-ray showed no acute fractures identified. Her left shoulder x-ray showed no acute fracture or dislocation identified. Her left pelvis x-ray shows comminuted intertrochanteric fracture of the left hip with mild varus deformity. Chest x-ray showed no acute abnormality identified, cardiomegaly and chronic obstructive pulmonary disease. Cervical spine CT showed 1) No acute spine abnormality, no spine fracture or subluxation. 2) No acute intracranial findings. 3) Cortical irregularity of the left first and second lateral ribs, may represent nondisplaced fractures. 4) Ground glass opacity partially seen in the left lung apex. Recommend CT for further evaluation. Her head CT was identified on the previous CT. Dr. Barrera, orthopedic surgeon, was called and he agreed to do the surgical repair tomorrow. I was called for hospital admission. PAST MEDICAL HISTORY: 1. Hypertension. 2. Hyperlipidemia. 3. Hypothyroidism. 4. History of breast cancer. 5. History of colonic polyps. PAST SURGICAL HISTORY: 1. Trigger finger release of right index finger. 2. History of cyst removal of right leg. 3. Left sided mastectomy. CURRENT MEDICATIONS: Per the EMR and awaiting verification. ALLERGIES: NO KNOWN DRUG ALLERGIES. FAMILY HISTORY: Positive for stroke, ovarian cancer, stomach cancer. SOCIAL HISTORY: She lives in [place] with her . She is a retired teacher. She has no history of ETOH, tobacco or illicit drug use. REVIEW OF SYSTEMS: Negative except as per history of present illness, which includes left hip pain. PHYSICAL EXAMINATION: VITAL SIGNS: Temperature 97.9. Heart rate 70. Blood pressure 166/80. Respiratory rate 20. O2 saturation 99% on room air. GENERAL: This is an 88-year-old female patient who is lying in her hospital bed. She is in no acute distress. HEENT: She does have a laceration to the left occipital area that has 3 vanessa placed by the ER physician. Otherwise, nontraumatic. Pupils are equal and reactive. Oropharynx is clear. NECK: Supple without mass. RESPIRATORY: Essentially clear to auscultation bilaterally. CHEST: There is equal rise and fall of the chest with inspiration and expiration. CARDIOVASCULAR: Regular rate and rhythm. GASTROINTESTINAL: Abdomen is soft, nondistended, nontender. Bowel sounds are positive. EXTREMITIES: She has tenderness to the lateral aspect of her left hip. Bilateral pedal pulses are palpable at +2. NEUROLOGIC: Awake, alert and oriented times three. Cranial nerves II-XII are grossly intact. SKIN: Warm and dry. LABORATORY: Labs and films are as per history of present illness. IMPRESSION: 1. Intertrochanteric fracture of the left hip status post same-level fall with no loss of consciousness. 2. History of hypertension, well controlled on medications. 3. History of hyperlipidemia on medications. 4. History of hypothyroidism on supplementation. 5. History of breast cancer with previous mastectomy. PLAN: We will admit the patient to the hospital. Dr. Barrera, orthopedic surgeon, has been contacted. I have initiated his preoperative orders. She will be NPO at midnight and tomorrow she will be taken for surgical repair. Her metoprolol has been started for in the morning. I have given her a proton pump inhibitor for ulcer prophylaxis. Pain medications have been started. Dr. Barrera has been consulted. We will do routine labs for in the morning. We will monitor the patient closely and follow as needed. [id number]
--- NOTE | 2019-05-22 20:32 | RAD ---
EXAM DESCRIPTION: Ankle,Left 3 Views CLINICAL HISTORY: 88 years ,Female Fall, pain COMPARISON: None. TECHNIQUE: LEFT ankle, Three view FINDINGS: No acute fractures or dislocations are identified. No osseous destructive lesions. No evidence of joint effusion. IMPRESSION: No acute fractures are identified. If symptoms persist, followup is recommended in 7-10 days. Electronically signed by: Missy Olsen MD 05/22/2019 8:31 PM CDT
--- NOTE | 2019-05-22 20:34 | RAD ---
EXAM DESCRIPTION: Tibia/Fibula,Left CLINICAL HISTORY: 88 years Female Fall, pain COMPARISON: None. TECHNIQUE: Left tibia fibula, two view FINDINGS: Bony demineralization No acute fractures or dislocations are identified. No osseous destructive lesions. No joint effusion is noted. IMPRESSION: No acute fracture is identified. Electronically signed by: Missy Olsen MD 05/22/2019 8:33 PM CDT
[2019-05-22] MEDS: MORPHINE SULFATE INJ 10 MG/ML VIAL IV PRN ×2 (22:18→22:44)
[2019-05-22] MEDS ORDERED: LACTATED RINGERS 1,000 ML IVS PRN (22:33)
[2019-05-22] MEDS ORDERED: SODIUM CHLORIDE 0.9% (FLUSH) 10 ML SYG IV PRN (22:33)
[2019-05-22] MEDS ORDERED: TRANEXAMIC ACID 1,000 MG/10 ML VIAL IV ONE (22:33)
[2019-05-22] MEDS ORDERED: ceFAZolin SODIUM 2 GM in SODIUM CHLORIDE 0.9% 100ML 100 ML IVPB ONE (22:33)
[2019-05-22] MEDS ORDERED: VANCOMYCIN HCL INJ 1,000 MG in SODIUM CHLORIDE 0.9% 250ML 250 ML IVPB ONE (22:33)
[2019-05-22] MEDS ORDERED: ACETAMINOPHEN 325 MG TAB PO ONE (22:47)
[2019-05-22] MEDS ORDERED: FUROSEMIDE INJ 20 MG/2 ML VIAL IV ONE (22:47)
[2019-05-22] MEDS ORDERED: diphenhydrAMINE HCL 50 MG/ML VIAL IV ONE (22:47)
[2019-05-22] MEDS: IV SET AND CAP CHANGE INJ INJ SCH (23:00)
[2019-05-22] MEDS ORDERED: SODIUM CHLORIDE 0.9% 500ML 500 ML IVS SCH (23:00)
[2019-05-23] MEDS: MORPHINE SULFATE INJ 10 MG/ML VIAL IV PRN ×2 (01:05→08:20)
[2019-05-23] MEDS ORDERED: ONDANSETRON INJ 4 MG/2 ML VIAL ONE (01:13)
[2019-05-23] MEDS ORDERED: ONDANSETRON INJ 4 MG/2 ML VIAL IV PRN (01:14)
[2019-05-23] MEDS ORDERED: PANTOPRAZOLE SODIUM IV 40 MG VIAL IV ONE (06:30)
[2019-05-23] MEDS ORDERED: PROPOFOL 200 MG/20 ML VIAL IV ONE (07:00)
[2019-05-23] MEDS ORDERED: SODIUM CHLORIDE 0.9% 50 ML VIAL ONE (07:00)
[2019-05-23] MEDS ORDERED: MAGNESIUM SULFATE INJ 1 GM/2 ML VIAL ONE (07:00)
[2019-05-23] MEDS ORDERED: ePHEDrine SULF 50 MG/ML ONE (07:00)
[2019-05-23] MEDS ORDERED: DEXAMETHASONE INJ 10 MG/ML VIAL ONE (07:00)
[2019-05-23] MEDS ORDERED: raNITIdine HCL INJ 25 MG/ML VIAL ONE (07:00)
[2019-05-23] MEDS ORDERED: LIDOCAINE 1% 10 ML VIAL INJ ONE (07:00)
[2019-05-23] MEDS: METOPROLOL SUCCINATE XL 25 MG TAB PO SCH (10:14)
[2019-05-23] MEDS ORDERED: KETAMINE HCL 100 MG/ML VIAL ONE (10:23)
[2019-05-23] MEDS ORDERED: fentaNYL CITRATE INJ 50 MCG/ML AMP ONE (10:24)
[2019-05-23] MEDS ORDERED: SODIUM CHLORIDE 0.9% 250ML 250 ML ONE (10:34)
[2019-05-23] MEDS ORDERED: ceFAZolin SODIUM 2 GRAMS PREMI 50 ML IVPB ONE (10:34)
[2019-05-23] MEDS ORDERED: VANCOMYCIN HCL INJ 1,000 MG VIAL IVPB ONE ×2 (10:34→10:37)
[2019-05-23] MEDS ORDERED: ceFAZolin SODIUM 1 GM VIAL ONE (10:37)
[2019-05-23] MEDS ORDERED: BUPIVACAINE 0.5% 30 ML VIAL INJ ONE (10:37)
[2019-05-23] MEDS ORDERED: BUPIVACAINE LIPOSOME 13.3 MG/ML VIAL INJ ONE (10:38)
[2019-05-23] MEDS ORDERED: ELECTROLYTE-A 1,000 ML IVS ONE (10:52)
[2019-05-23] MEDS ORDERED: LACTATED RINGERS 1,000 ML ONE (13:15)
--- NOTE | 2019-05-23 13:16 | RAD ---
EXAM DESCRIPTION: Hip,Left 2 Views CLINICAL HISTORY: 88 years Female, post op gamma nailing COMPARISON: None available. FINDINGS: Postsurgical changes consistent with open reduction internal fixation of left intertrochanteric fracture with a intramedullary cezar and intertrochanteric screw. The hardware appears intact. The femoral head is well contained in the acetabular fossa. Severe left hip joint osteoarthritic changes are noted. The overlying soft tissues demonstrate subcutaneous air in the lateral aspect likely sequela of recent postsurgical changes. IMPRESSION: 1. Postsurgical changes consistent with open reduction internal fixation of the mildly comminuted left intertrochanteric fracture with intramedullary cezar and intertrochanteric screw. The fracture fragments appear in near normal anatomic alignment. 2. Moderate to severe left hip joint osteoarthritic changes. Electronically signed by: Aayush Loza MD 05/23/2019 1:14 PM CDT
--- NOTE | 2019-05-23 13:51 | RAD ---
EXAM DESCRIPTION: Fluoroscopy Up to 1Hr CLINICAL HISTORY: 88 years Female, IM NAILING COMPARISON: Pelvic radiograph 05/22/2019. IMPRESSION: Multiple intraoperative fluoroscopic images saved for the benefit of the surgeon. Intramedullary nail within the proximal left femur. Please see procedure report for full details. Fluoroscopy time: 72.6 seconds Fluoroscopic images: 1 Total dose: 15.95 mGy Electronically signed by: Keaton Johnson MD 05/23/2019 1:50 PM CDT
[2019-05-23] MEDS: ENOXAPARIN SODIUM 30 MG/0.3 ML SYG SUBCU SCH (23:02)
--- NOTE | 2019-05-23 23:30 | PN ---
DATE: 05/23/19 SUPERVISING PHYSICIAN: Camden Mace M.D. SUBJECTIVE: The patient just returned from surgery with a gamma nail procedure. She had no intraoperative complications. She was alert. She said her pain was well controlled. OBJECTIVE: VITAL SIGNS: Temperature 97.3, pulse 79, blood pressure 140/72, respirations 12, satting 100% on nasal cannula at 2 liters at rest. Weight 68.1 kg. GENERAL: The patient is resting comfortably. She is asleep but easily aroused. Showing to be in no acute distress and alert. CHEST: Lung sounds are clear to auscultation. HEART: Regular rate and rhythm. ABDOMEN: Soft, non-tender. Positive bowel sounds. EXTREMITIES: No edema. On the left hip there is a surgical dressing in place which is clean and dry. Distally pulses are strong, capillary refill brisk. NEUROLOGIC: She was alert and oriented times three. LABORATORY: White count 5,000, hemoglobin 11.2, hematocrit 35.5. Postoperative H&H is pending. Platelet count 140,000. Differential showed to be without a left shift. Preoperative chemistries showed a mildly low carbon dioxide but normal anion gap and normal electrolytes. BUN 24, creatinine 0.91. Liver functions showed just a slightly elevated AST, otherwise within normal limits. Urinalysis showed just 15 ketones, trace lysed blood, otherwise within normal limits. RADIOLOGY: Hip x-ray postoperatively per radiology interpretation showed post surgical changes consistent with open reduction and internal fixation of a mildly comminuted left intertrochanteric fracture with intramedullary cezar and intertrochanteric screw. The fractures appear to be in near normal anatomic alignment. There was noted a moderate to severe hip showing osteoarthritic changes. ASSESSMENT: 1. Intertrochanteric fracture of the left hip status post same-level fall with no loss of consciousness. Postoperative day #0 for gamma nail. 2. History of hypertension, well controlled on medications. 3. History of hyperlipidemia on medications. 4. History of hypothyroidism on supplementation. 5. History of breast cancer with previous mastectomy. PLAN: Will follow the patient postoperatively as she works with her physical therapy and rehabilitation efforts. Will resume her home medications once those have been completely updated and verified. She will be on incentive spirometry and aggressive pulmonary hygiene. She is on a proton pump inhibitor prophylaxis. Will start her on Lovenox postoperatively tonight. Will check an H&H in the morning as well as repeat a BMP. Anticipate at least 2 to 3 days of admission. I did discuss with the family options of rehab and they are open to all options, just depending on what she does postoperatively. Until we can transition her to outpatient management will continue to monitor and treat as needed. #[id number] [facility]
[2019-05-24] MEDS: LEVOTHYROXINE SODIUM 0.088 MG TAB PO SCH (06:25)
[2019-05-24] MEDS: MORPHINE SULFATE INJ 10 MG/ML VIAL IV PRN ×2 (06:25→14:22)
[2019-05-24] MEDS ORDERED: SODIUM CHL 0.9% 50ML MIN-BAG+ 50 ML IVPB ONE ×3 (08:53→19:07)
[2019-05-24] MEDS ORDERED: SODIUM CHLORIDE 0.9% 250ML 250 ML ONE ×2 (08:53→19:07)
[2019-05-24] MEDS ORDERED: VANCOMYCIN HCL INJ 1,000 MG VIAL IVPB ONE ×2 (08:54→19:08)
[2019-05-24] MEDS ORDERED: ceFAZolin SODIUM 1 GM VIAL ONE ×3 (08:54→19:08)
[2019-05-24] MEDS: ceFAZolin SODIUM 1 GM in SODIUM CHL 0.9% 50ML MIN-BAG+ 50 ML IVPB SCH ×2 (09:01→16:12)
[2019-05-24] MEDS: METOPROLOL SUCCINATE XL 25 MG TAB PO SCH (09:02)
[2019-05-24] MEDS: TAMSULOSIN 0.4 MG CAP PO SCH (09:02)
[2019-05-24] MEDS: ASPIRIN (ENTERIC COATED) 81 MG TAB PO SCH (09:03)
[2019-05-24] MEDS: NON-FORMULARY MEDICATION 1 EA MIS (Rosuvastatin Calcium [Crestor] 40 MG) PO SCH (09:21)
[2019-05-24] MEDS: IRBESARTAN 300 MG PO SCH (09:22)
[2019-05-24] MEDS: VANCOMYCIN HCL INJ 1,000 MG in SODIUM CHLORIDE 0.9% 250ML 250 ML IVPB SCH ×2 (10:02→20:55)
[2019-05-24] MEDS: ENOXAPARIN SODIUM 30 MG/0.3 ML SYG SUBCU SCH ×2 (11:07→23:17)
--- NOTE | 2019-05-24 19:22 | PN ---
DATE: 05/24/19 SUPERVISING PHYSICIAN: Camden Mace M.D. SUBJECTIVE: The patient is sitting in the bedside chair. She appears to be in no acute distress. She is visiting with family. She is alert. She has had no further complaints. Said her pain is being controlled. OBJECTIVE: VITAL SIGNS: Temperature 98.1, pulse 75, blood pressure 140/80, respirations 16, satting 98% on room air. GENERAL: The patient is resting comfortably in the bedside chair. She is alert. CHEST: Clear to auscultation. HEART: Regular rate and rhythm. ABDOMEN: Soft, non-tender. Positive bowel sounds. EXTREMITIES: Without any edema. Left hip has a bandage in place that is clean and dry. NEUROLOGIC: She is alert and oriented times three. POSTOPERATIVE LABORATORY: Hemoglobin 10.1, hematocrit 31.4 with chemistries showing normal electrolytes. BUN 19, creatinine 0.84, calcium 8.2. ASSESSMENT: 1. Intertrochanteric fracture of the left hip status post same-level fall with no loss of consciousness. Postoperative day #1 for gamma nail placement. 2. History of hypertension, well controlled on medications. 3. History of hyperlipidemia on medications. 4. History of hypothyroidism on supplementation. 5. History of breast cancer with previous mastectomy. PLAN: Will continue to follow the patient as she progresses through her physical therapy and rehabilitation portion of recovery. I have resumed her home medications. She is on incentive spirometry and aggressive pulmonary hygiene. She remains on PPI prophylaxis as well as Lovenox. Will hopefully be able to discharge the patient by Sunday or Sunday. Until then will continue to monitor and treat as needed. [facility][id number] [facility]
[2019-05-24] MEDS: traMADol HCL 50 MG TAB PO PRN (20:55)
[2019-05-25] MEDS: ceFAZolin SODIUM 1 GM in SODIUM CHL 0.9% 50ML MIN-BAG+ 50 ML IVPB SCH (00:21)
[2019-05-25] MEDS: LEVOTHYROXINE SODIUM 0.088 MG TAB PO SCH (06:44)
[2019-05-25] MEDS: METOPROLOL SUCCINATE XL 25 MG TAB PO SCH (08:39)
[2019-05-25] MEDS: TAMSULOSIN 0.4 MG CAP PO SCH (08:39)
[2019-05-25] MEDS: traMADol HCL 50 MG TAB PO PRN ×3 (08:39→20:19)
[2019-05-25] MEDS: IRBESARTAN 300 MG PO SCH (10:36)
[2019-05-25] MEDS: ASPIRIN (ENTERIC COATED) 81 MG TAB PO SCH (10:36)
[2019-05-25] MEDS: NON-FORMULARY MEDICATION 1 EA MIS (Rosuvastatin Calcium [Crestor] 40 MG) PO SCH (10:36)
[2019-05-25] MEDS: ENOXAPARIN SODIUM 30 MG/0.3 ML SYG SUBCU SCH ×2 (11:39→23:31)
[2019-05-25] MEDS ORDERED: SODIUM CHLORIDE 0.9% (FLUSH) 10 ML SYG IV ONE (14:14)
--- NOTE | 2019-05-25 16:26 | PN ---
DATE: 05/25/19 SUBJECTIVE: Ms. Robbins is doing well and has no pain. OBJECTIVE: She is afebrile. Vital signs are stable. Wounds are clean. There are no signs or symptoms of infection. ASSESSMENT: 1. Status post gamma nailing. PLAN: The plan at this point is for her to continue on her partial weightbearing status. #[id number] [facility]
--- NOTE | 2019-05-25 17:41 | PN ---
DATE: 05/25/19 SUPERVISING PHYSICIAN: Camden Mace M.D. SUBJECTIVE: The patient is continuing to do well. She notes she has had good control of her pain. Nurses report that she is a little weak when she stands up but she is still toe touch only. She has not had any chest pains, shortness of breath, diarrhea, nausea or vomiting. She has been afebrile. OBJECTIVE: VITAL SIGNS: Temperature 98.5, pulse 74, blood pressure 131/74, respirations 18, satting 94% on room air. GENERAL: The patient is resting comfortably, has just eaten lunch. She is alert. CHEST: Clear to auscultation, just slightly diminished towards the bases. HEART: Regular rate and rhythm. ABDOMEN: Soft, non-tender. Positive bowel sounds. EXTREMITIES: Without any edema. Left hip has the dressing removed with incision sites showing to be clean and dry. There are some ecchymotic areas from the fall but no areas of deformity or signs of infection. Distally pulses were strong, capillary refill brisk. NEUROLOGIC: She is alert and oriented times three. LABORATORY: No additional laboratory studies. RADIOLOGY: No additional radiographic studies. ASSESSMENT: 1. Intertrochanteric fracture of the left hip status post same-level fall with no loss of consciousness. Postoperative day #2 for gamma nail placement. 2. Chronic hypertension but controlled on medications. 3. History of hyperlipidemia on medications. 4. History of hypothyroidism on supplementation. 5. History of breast cancer with previous mastectomy. PLAN: Will continue to follow the patient as she progresses through her physical therapy and rehabilitation efforts. She will need a stool softener as she said that she feels like she may be a little constipated, but she is passing gas and only passed a very small amount of stool this morning. Will continue to encourage good pulmonary hygiene and use of incentive spirometry. She continues on PPI prophylaxis as well as Lovenox. Until we can discharge her to outpatient management will continue to monitor and treat as needed. [facility][id number] [facility]
[2019-05-25] MEDS ORDERED: PANTOPRAZOLE SODIUM TAB 40 MG PO ONE (19:30)
[2019-05-25] MEDS: SODIUM CHLORIDE 0.9% (FLUSH) 10 ML SYG IV SCH (20:00)
[2019-05-25] MEDS: IV SET AND CAP CHANGE INJ INJ SCH (23:31)
[2019-05-26] MEDS: traMADol HCL 50 MG TAB PO PRN ×4 (03:10→20:37)
[2019-05-26] MEDS: PANTOPRAZOLE SODIUM TAB 40 MG PO SCH (05:48)
[2019-05-26] MEDS: LEVOTHYROXINE SODIUM 0.088 MG TAB PO SCH (06:03)
--- NOTE | 2019-05-26 08:32 | OP ---
DATE OF PROCEDURE: 05/23/19 PREOPERATIVE DIAGNOSIS: 1. Left intertrochanteric hip fracture. POSTOPERATIVE DIAGNOSIS: 1. Left intertrochanteric hip fracture. PROCEDURE: 1. Gamma nailing. SURGEON: Stephane Barrera MD. [employer] SWAGE OPERATOR: Esau Dial CST, SA-C. ANESTHESIA: General anesthesia. COMPLICATIONS: None. FINDINGS: Intertrochanteric fracture of the left hip. INDICATION: Ms. Robbins is an 88-year-old female with a history of pain secondary to a fall. She was taken to the Emergency Room and x-rays revealed a fracture of the intertrochanteric region. She was admitted and I was consulted. After discussing the risks, benefits and alternatives to operative therapy, she gave informed consent for gamma nailing. PROCEDURE: The patient was brought to the Operating Room and placed in the supine position. General anesthesia was administered and the patient was placed on the fracture table. The fracture was provisionally reduced under fluoroscopic imaging and after reduction, the leg and hemipelvis were sterilely prepped and draped. An incision was made just proximal to the greater trochanter and dissection was carried through the iliotibial band and down to the greater trochanter. A starting pin was placed and a one-step reamer was used to open the femoral canal. A 125 degree angled Gamma nail was inserted into the canal to the appropriate level. A guide pin was placed from the lateral cortex into the femoral head. The appropriate length compression screw was measured and inserted with the placement guided under direct imaging. Following that, the distal locking screw was drilled, measured, and placed under imaging. The proximal locking screw was placed through the outrigger into the top of the nail and the outrigger removed. The final construct was imaged and the wounds were thoroughly irrigated, followed by closure with Monocryl suture. Sterile dressings were placed. The patient was awoken from anesthesia and taken to the Recovery Room. POSTOPERATIVE PLAN: The plan at this point is for partial weightbearing. We will get her up moving tomorrow. #[id number] MTDD
[2019-05-26] MEDS: NON-FORMULARY MEDICATION 1 EA MIS (Rosuvastatin Calcium [Crestor] 40 MG) PO SCH (08:47)
[2019-05-26] MEDS: SODIUM CHLORIDE 0.9% (FLUSH) 10 ML SYG IV SCH (08:47)
[2019-05-26] MEDS: ASPIRIN (ENTERIC COATED) 81 MG TAB PO SCH (08:47)
[2019-05-26] MEDS: DOCUSATE SODIUM 100 MG CAP PO SCH ×2 (08:47→20:37)
[2019-05-26] MEDS: METOPROLOL SUCCINATE XL 25 MG TAB PO SCH (08:47)
[2019-05-26] MEDS: TAMSULOSIN 0.4 MG CAP PO SCH (08:47)
[2019-05-26] MEDS: IRBESARTAN 300 MG PO SCH (08:47)
[2019-05-26] MEDS: ENOXAPARIN SODIUM 30 MG/0.3 ML SYG SUBCU SCH ×2 (11:06→23:32)
--- NOTE | 2019-05-26 13:35 | PCM.PROG ---
PCM Subjective - Review of Systems Events since last encounter: Patient without complaints at this time, sitting up in the chair with family at bedside. Pain is controlled, does have discomfort with transfer. Objective - Exam Vitals and I&O: Vital Signs Temp 98.2 F 05/26/19 13:00 Pulse 80 05/26/19 13:00 Resp 20 05/26/19 13:00 BP 130/72 05/26/19 13:00 Pulse Ox 94 L 05/26/19 13:00 Intake & Output 05/25/19 05/26/19 05/26/19 18:59 06:59 18:59 Intake Total 600 460 240 Output Total 700 475 525 Balance -100 -15 -285 Intake: Oral 600 460 240 Output: Staples Amount 700 475 525 General: Alert, Oriented x3, No acute distress HEENT: PERRLA Neck: Supple, No JVD Lungs: Clear to auscultation Cardiovascular: Regular rate, Normal S1, Normal S2 Abdomen: Normal bowel sounds, Soft Extremities: No edema, Other - left hip incision with no sign of infection Neurological: Normal speech - Results Results: 05/26/19 06:30 Pantoprazole Tablet [Protonix] 40 mg PO DAILY@0630 05/26/19 07:48 social [Consult:Social Service] Routine 05/26/19 09:00 Docusate Sodium [Colace] 100 mg PO BID Laboratory Results WBC 5.0 K/mm3 (4.8-10.8) 05/23/19 08:25 RBC 4.20 M/mm3 (4.20-5.40) 05/23/19 08:25 Hgb 10.1 gm/dL (12.0-16.0) L 05/24/19 05:18 Hct 31.4 % (36.0-47.0) L 05/24/19 05:18 MCV 84.6 fl (81.0-99.0) 05/23/19 08:25 MCH 26.6 pg (27.0-31.0) L 05/23/19 08:25 MCHC 31.4 g/dL (33.0-37.0) L 05/23/19 08:25 RDW 16.2 % (11.5-14.5) H 05/23/19 08:25 Plt Count 140 K/mm3 (130-400) 05/23/19 08:25 MPV 7.8 fl (7.40-10.4) 05/23/19 08:25 Absolute Neuts (auto) 3.40 K/uL (1.8-6.8) 05/23/19 08:25 Absolute Lymphs (auto) 0.80 K/uL (1.0-3.4) L 05/23/19 08:25 Absolute Monos (auto) 0.50 K/uL (0.2-0.8) 05/23/19 08:25 Absolute Eos (auto) 0.20 K/uL (0.0-0.4) 05/23/19 08:25 Absolute Basos (auto) 0.00 K/uL (0.0-0.1) 05/23/19 08:25 Neutrophils % 68.8 % (42.0-78.0) 05/23/19 08:25 Lymphocytes % 16.9 % (20.0-50.0) L 05/23/19 08:25 Monocytes % 9.9 % (2.0-9.0) H 05/23/19 08:25 Eosinophils % 3.5 % (1.0-5.0) 05/23/19 08:25 Basophils % 0.9 % (0.0-2.0) 05/23/19 08:25 Sodium 137 mmol/L (135-145) 05/24/19 05:18 Potassium 4.1 mmol/L (3.6-5.0) 05/24/19 05:18 Chloride 105 mmol/L (101-111) 05/24/19 05:18 Carbon Dioxide 22 mmol/L (21-31) 05/24/19 05:18 Anion Gap 14.1 (12-18) 05/24/19 05:18 BUN 19 mg/dL (7-18) H 05/24/19 05:18 Creatinine 0.84 mg/dL (0.6-1.3) 05/24/19 05:18 BUN/Creatinine Ratio 22.6 (10-20) H 05/24/19 05:18 Random Glucose 137 mg/dL (70-105) H D 05/24/19 05:18 Serum Osmolality 278.2 mOsm/L (275-295) 05/24/19 05:18 Calcium 8.2 mg/dL (8.4-10.2) L 05/24/19 05:18 Total Bilirubin 0.8 mg/dL (0.2-1.0) 05/23/19 08:25 AST 53 IU/L (10-42) H 05/23/19 08:25 ALT 34 IU/L (10-60) 05/23/19 08:25 Alkaline Phosphatase 72 IU/L (42-121) 05/23/19 08:25 Serum Total Protein 6.1 gm/dL (6.4-8.2) L 05/23/19 08:25 Albumin 3.3 g/dl (3.2-5.5) 05/23/19 08:25 Globulin 2.8 gm/dL (2.3-3.5) 05/23/19 08:25 Albumin/Globulin Ratio 1.2 (1.1-1.9) 05/23/19 08:25 Urine Color Yellow (Yellow) 05/22/19 23:18 Urine Appearance Clear (Clear) 05/22/19 23:18 Urine pH 5.5 (4.5-7.8) 05/22/19 23:18 Ur Specific Davidson 1.025 (1.005-1.030) 05/22/19 23:18 Urine Protein 30 mg/dL 05/22/19 23:18 Urine Glucose (UA) Negative mg/dL (Negative) 05/22/19 23:18 Urine Ketones 15 mg/dL (NEGATIVE) H 05/22/19 23:18 Urine Blood Trace-lysed (Negative) H 05/22/19 23:18 Urine Nitrite Negative 05/22/19 23:18 Urine Bilirubin Negative (NEGATIVE) 05/22/19 23:18 Urine Urobilinogen 0.2 mg/dL (0.2-1.0) 05/22/19 23:18 Ur Leukocyte Esterase Negative (Negative) 05/22/19 23:18 Urine RBC 0 /hpf 05/22/19 23:18 Urine WBC 0-1 /hpf 05/22/19 23:18 Ur Epithelial Cells 3-5 /hpf 05/22/19 23:18 Urine Bacteria Rare 05/22/19 23:18 Urine Mucus Small 05/22/19 23:18 Patient ABO/Rh B POSITIVE 05/22/19 23:01 Antibody Screen Negative 10/03/19 23:01 Crossmatch See Detail 05/22/19 23:01
--- NOTE | 2019-05-26 13:58 | PN ---
SUPERVISING PHYSICIAN: Nathan Romeo MD DATE: 05/26/19 SUBJECTIVE: The patient is sitting up in a chair without any significant complaints. She states she does have discomfort upon transfer, but is currently not having any pain. No other complaints either. OBJECTIVE: VITAL SIGNS: Blood pressure 130/72. Heart rate 80. Respiratory rate 12. Temperature 98.2. Oxygen saturation 94%. GENERAL: Ms. Robbins is an 88-year-old female in no active distress currently. NEUROLOGIC: The patient is alert. LUNGS: Clear to auscultation bilaterally. CARDIOVASCULAR: Regular rate and rhythm. Normal S1, S2. ABDOMEN: Soft. Positive bowel sounds. No tenderness to palpation. EXTREMITIES: Left hip with incision with no sign of infection at this time. ASSESSMENT: 1. Intertrochanteric fracture of the left hip status post Gamma nail, postoperative day #3. 2. Hypertension, controlled on current medications. 3. Hyperlipidemia. 4. Hypothyroidism. 5. History of breast cancer with previous mastectomy. PLAN: The patient will continue physical therapy as well as pain control efforts. She is also on anticoagulation. I started her on some stool softeners due to her constipation. Her family is visiting some nursing homes today to decide on a facility for placement. We likely can discharge in the next couple of days or so. #[id number] [facility]
[2019-05-26] MEDS ORDERED: ALUM & MAG HYDROX-SIMETHICONE 30 ML UD ONE (23:44)
[2019-05-26] MEDS: ALUM & MAG HYDROX-SIMETHICONE 30 ML UD PO PRN (23:48)
[2019-05-27] MEDS: traMADol HCL 50 MG TAB PO PRN ×2 (04:08→12:42)
[2019-05-27] MEDS: PANTOPRAZOLE SODIUM TAB 40 MG PO SCH (06:05)
[2019-05-27] MEDS: LEVOTHYROXINE SODIUM 0.088 MG TAB PO SCH (06:05)
[2019-05-27] MEDS: METOPROLOL SUCCINATE XL 25 MG TAB PO SCH (09:13)
[2019-05-27] MEDS: TAMSULOSIN 0.4 MG CAP PO SCH (09:13)
[2019-05-27] MEDS: ASPIRIN (ENTERIC COATED) 81 MG TAB PO SCH (09:14)
[2019-05-27] MEDS: DOCUSATE SODIUM 100 MG CAP PO SCH ×2 (09:14→21:02)
[2019-05-27] MEDS: IRBESARTAN 300 MG PO SCH (09:14)
[2019-05-27] MEDS: NON-FORMULARY MEDICATION 1 EA MIS (Rosuvastatin Calcium [Crestor] 40 MG) PO SCH (09:14)
[2019-05-27] MEDS: ENOXAPARIN SODIUM 30 MG/0.3 ML SYG SUBCU SCH ×2 (12:43→23:11)
--- NOTE | 2019-05-27 15:34 | PN ---
SUPERVISING PHYSICIAN: Nathan Romeo MD DATE: 05/27/19 SUBJECTIVE: The patient is not having any significant changes today. She seems to be a little bit more active, however. Discontinuing Staples catheter today as well. OBJECTIVE: VITAL SIGNS: Blood pressure 140/71. Heart rate 69. Respiratory rate 16. Temperature 97.2. Oxygen saturation 96%. GENERAL: Ms. Robbins is an 88-year-old female in no active distress. NEUROLOGIC: The patient is alert. LUNGS: Clear to auscultation bilaterally. CARDIOVASCULAR: Regular rate and rhythm. Normal S1, S2. ABDOMEN: Soft. Positive bowel sounds. No tenderness to palpation. EXTREMITIES: Left hip with incision with no sign of infection. Peripheral pulses are 2+. Capillary refill less than 2 seconds. ASSESSMENT: 1. Intertrochanteric fracture of the left hip status post Gamma nail, postoperative day #4. 2. Hypertension, controlled. 3. Hyperlipidemia. 4. Hypothyroidism. 5. History of breast cancer with previous mastectomy. PLAN: We are still awaiting insurance approval for fci placement. We will continue all her medications and therapies at this time. #[id number] MTDD
[2019-05-28] MEDS: traMADol HCL 50 MG TAB PO PRN ×4 (01:56→21:21)
[2019-05-28] MEDS: PANTOPRAZOLE SODIUM TAB 40 MG PO SCH (06:09)
[2019-05-28] MEDS: LEVOTHYROXINE SODIUM 0.088 MG TAB PO SCH (06:09)
[2019-05-28] MEDS ORDERED: MAGNESIUM HYDROXIDE 30 ML UD ONE (09:18)
[2019-05-28] MEDS: TAMSULOSIN 0.4 MG CAP PO SCH (10:23)
[2019-05-28] MEDS: ASPIRIN (ENTERIC COATED) 81 MG TAB PO SCH (10:23)
[2019-05-28] MEDS: DOCUSATE SODIUM 100 MG CAP PO SCH ×2 (10:23→21:14)
[2019-05-28] MEDS: NON-FORMULARY MEDICATION 1 EA MIS (Rosuvastatin Calcium [Crestor] 40 MG) PO SCH (10:25)
[2019-05-28] MEDS: IRBESARTAN 300 MG PO SCH (10:25)
[2019-05-28] MEDS: METOPROLOL SUCCINATE XL 25 MG TAB PO SCH (10:26)
[2019-05-28] MEDS ORDERED: MAGNESIUM HYDROXIDE 30 ML UD PO PRN (10:27)
[2019-05-28] MEDS: ENOXAPARIN SODIUM 30 MG/0.3 ML SYG SUBCU SCH ×2 (12:29→22:47)
[2019-05-28] MEDS: ALUM & MAG HYDROX-SIMETHICONE 30 ML UD PO PRN (17:17)
--- NOTE | 2019-05-28 17:44 | PN ---
DATE: 05/28/19 SUPERVISING PHYSICIAN: Nathan Romeo M.D. SUBJECTIVE: The patient is doing fairly well. Her Staples was discontinued and she had a little bit of difficulty initially but since then has been able to void. She still requires quite a bit of assistance. OBJECTIVE: VITAL SIGNS: Blood pressure 119/72, heart rate 72, respiratory rate 16, temperature 97.5, oxygen saturation 96%. GENERAL: Ms. Robbins is an 88 year-old female in no active distress currently. NEUROLOGIC: The patient is alert but confused. LUNGS: Clear. CARDIOVASCULAR: Regular rate and rhythm. Normal S1 and S2. ABDOMEN: Soft. Positive bowel sounds. EXTREMITIES: Her incision is still with no signs of infection. ASSESSMENT: 1. Intertrochanteric fracture of the left hip status post Gamma nail, postoperative day #5. 2. Hypertension. 3. Hyperlipidemia. 4. Hypothyroidism. 5. History of breast cancer. PLAN: Continue physical therapy and anticoagulation as ordered. Still waiting for insurance approval for placement at skilled nursing. #[id number] MTDD
[2019-05-28] MEDS: IV SET AND CAP CHANGE INJ INJ SCH (22:47)
[2019-05-29] MEDS: traMADol HCL 50 MG TAB PO PRN ×3 (03:49→17:18)
[2019-05-29 05:29] VITALS: O2SAT 94
[2019-05-29] MEDS: PANTOPRAZOLE SODIUM TAB 40 MG PO SCH (06:26)
[2019-05-29] MEDS: LEVOTHYROXINE SODIUM 0.088 MG TAB PO SCH (06:27)
--- NOTE | 2019-05-29 08:14 | PN ---
DATE: 05/29/19 SUBJECTIVE: Ms. Robbins is doing really well and she has no pain. OBJECTIVE: Afebrile. Vital signs stable. Wound is clean. There are no signs or symptoms of infection. ASSESSMENT: Status post Gamma nailing. PLAN: The plan is to continue current weightbearing status. I do believe she is going to [facility] today. #[id number] MTDD
[2019-05-29] MEDS: ASPIRIN (ENTERIC COATED) 81 MG TAB PO SCH (09:09)
[2019-05-29] MEDS: DOCUSATE SODIUM 100 MG CAP PO SCH (09:09)
[2019-05-29] MEDS: NON-FORMULARY MEDICATION 1 EA MIS (Rosuvastatin Calcium [Crestor] 40 MG) PO SCH (09:10)
[2019-05-29] MEDS: METOPROLOL SUCCINATE XL 25 MG TAB PO SCH (09:10)
[2019-05-29] MEDS: TAMSULOSIN 0.4 MG CAP PO SCH (09:10)
[2019-05-29] MEDS: IRBESARTAN 300 MG PO SCH (09:12)
[2019-05-29] MEDS: ENOXAPARIN SODIUM 30 MG/0.3 ML SYG SUBCU SCH (11:00)
[2019-05-29 19:34] VITALS: BP 110/72; TEMP 98.6
--- NOTE | 2019-05-30 08:27 | DS ---
SUPERVISING PHYSICIAN: Nathan Romeo MD ADMISSION DIAGNOSIS: 1. Intertrochanteric fracture of the left hip status post same-level fall with no loss of consciousness. 2. History of hypertension, well controlled on medications. 3. History of hyperlipidemia on medications. 4. History of hypothyroidism on supplementation. 5. History of breast cancer with previous mastectomy. DISCHARGE DIAGNOSIS: 1. Intertrochanteric fracture of the left hip status post Gamma nail, postoperative day #6. 2. Hypertension. 3. Hyperlipidemia. 4. Hypothyroidism. 5. History of breast cancer. REASON FOR HOSPITALIZATION : This is an 88-year-old female patient who came to the Emergency Room after sustaining a fall at [facility]. She states she slipped on the floor, fell on her left side and had left hip pain. She was brought to the Emergency Room. She did have a laceration on the back of the left side of her head. There was no loss of consciousness. In the Emergency Room, her initial vital signs were temperature 97.3, heart rate 93, blood pressure 196/96. Shortly thereafter, her blood pressure went down to 165/80. Respiratory rate 18, O2 saturation 98% on room air. Laboratory studies were done and her urinalysis was negative. X-rays were done. Her left tibia/fibula x-ray showed no acute fracture identified. Her left ankle x-ray showed no acute fractures identified. Her left shoulder x-ray showed no acute fracture or dislocation identified. Her left pelvis x-ray shows comminuted intertrochanteric fracture of the left hip with mild varus deformity. Chest x-ray showed no acute abnormality identified, cardiomegaly and chronic obstructive pulmonary disease. Cervical spine CT showed 1) No acute spine abnormality, no spine fracture or subluxation. 2) No acute intracranial findings. 3) Cortical irregularity of the left first and second lateral ribs, may represent nondisplaced fractures. 4) Ground glass opacity partially seen in the left lung apex. Recommend CT for further evaluation. Her head CT was identified on the previous CT. Dr. Barrera, orthopedic surgeon, was called and he agreed to do the surgical repair tomorrow. LABORATORY: CBC on admission showed white count 5,000, hemoglobin 11.2, hematocrit 35.5. Postoperatively, hemoglobin 10.1, hematocrit 31.4. Differential was without a left shift. Chemistries were essentially unremarkable. BUN 19, creatinine 0.84 on last chemistries drawn on 05/24/19. She did have a slightly elevated AST at 53. Calcium 8.2. Urinalysis was within normal limits. RADIOLOGY: She had multiple x-rays initially in the Emergency Room including CT of the head, cervical spine which were without any acute findings. Chest x-ray was without any acute findings. Pelvis x-ray showed comminuted intertrochanteric fracture of the left hip with mild varus deformity. She had a shoulder x-ray on the left which showed no acute fracture or dislocation. She then had ankle and tib-fib x-rays on the left with no acute fractures identified. Postoperative x-ray included hip x-ray and per radiologic interpretation showed post surgical changes consistent with open reduction internal fixation of mildly comminuted left intertrochanteric fracture with intramedullary cezar and intertrochanteric screw. Fracture fragments appear to be in near normal anatomic alignment. CONSULTATION: Orthopedic services, Dr. Barrera. Please see his consultation note. PROCEDURE: Left intertrochanteric hip fracture with Gamma nailing. Please see Dr. Barrera's operative note for details. HOSPITAL COURSE: Ms. Robbins was admitted as noted above for left hip fracture. The morning after admission, she was taken to surgery for a Gamma nailing procedure of the left hip. She had no intraoperative complications. Postoperatively, she did well. She was able to participate in physical therapy, but given her advanced age, she was progressing slowly and it was felt she would need enough assistance at this point that she would benefit from continued rehabilitation through a skilled facility and therefore plans were made to discharge her to [facility] to continue physical therapy. She did remain on DVT prophylaxis per protocol with Lovenox. She was having no complaints, no fevers. She had a bowel movement. She was tolerating diet. It was felt that she had clinically improved well enough to continue with outpatient management. Therefore, she is to be discharged to [facility]. PLAN: Ms. Robbins is discharged to [facility] for rehabilitation efforts on 05/29/19. She was to continue her regular diet as tolerated. Activities were per physical therapy for evaluation and treatment and use walker as directed. Wound care management was she could shower, no tub baths, wound care was per Dr. Barrera's instructions. She was to followup with Dr. Barrera and Dr. Mataska as scheduled. Medications included instructions to follow as directed on the medical administration record. MEDICATIONS LISTED ON DISCHARGE: 1. Aspirin 81 mg daily. 2. Dexilant 15 mg daily. 3. Avapro 300 mg daily. 4. Meclizine 25 mg t.i.d. as needed. 5. Metoprolol 25 mg extended release daily. 6. Crestor 40 mg daily. 7. Flomax 0.4 mg daily. 8. Mylanta 30 mL q.4h. as needed. 9. Levothyroxine 0.88 mg daily. 10. Milk of Magnesia as needed for constipation, 30 mL daily. 11. Xarelto continued anticoagulation 10 mg daily for 27 days, no refills. DISPOSITION: The patient is discharged to [facility]. CONDITION ON DISCHARGE: Stable and improved. #[id number] [facility]
== END 2019-05-29 18:20 | DRG 482 ==
LOC: ER 17:44 → UNDOADMOB 20:24 → MS 20:24 → OBSVTOIN 20:24
PROVIDERS: ADMIT Nurse Practitioner Acute Care; ATTEND Nurse Practitioner Family
PROC: 0HQ0XZZ Repair Scalp Skin, External Approach (ICD-10-PCS; 2019-05-22)
PROC: 3E0T3BZ Introduction of Anesthetic Agent into Peripheral Nerves and Plexi, Percutaneous Approach (ICD-10-PCS; 2019-05-23)
PROC: 3E0T33Z Introduction of Anti-inflammatory into Peripheral Nerves and Plexi, Percutaneous Approach (ICD-10-PCS; 2019-05-23)
PROC: 0QS734Z Reposition Left Upper Femur with Internal Fixation Device, Percutaneous Approach (ICD-10-PCS; principal; 2019-05-23 11:30)
DX: S72.142A Displaced intertrochanteric fracture of left femur, initial encounter for closed fracture (principal); S01.01XA Laceration without foreign body of scalp, initial encounter; I10 Essential (primary) hypertension; E78.5 Hyperlipidemia, unspecified; E03.9 Hypothyroidism, unspecified; Z85.3 Personal history of malignant neoplasm of breast; W01.0XXA Fall on same level from slipping, tripping and stumbling without subsequent striking against object, initial encounter; Y92.511 Restaurant or cafe as the place of occurrence of the external cause; Z79.82 Long term (current) use of aspirin; Z79.899 Other long term (current) drug therapy

== ENCOUNTER → 2019-06-04 | Outpatient (CLI) | payer OTHER | LOC: GT 13:05 | PROVIDERS: ATTEND Family Medicine | DX: N39.0 Urinary tract infection, site not specified (principal) ==

== ENCOUNTER → 2019-06-26 | Outpatient (CLI) | payer OTHER ==
--- NOTE | 2019-06-26 12:16 | RAD ---
EXAM DESCRIPTION: Hip,Left 2 Views CLINICAL HISTORY: 88 years Female, Hip pain COMPARISON: 05/23/2019. FINDINGS: Stable ORIF of the left femur. Intertrochanteric fracture is again visualized with mildly increased offset of the medial cortices of the proximal femur compared to prior examination. Clinical correlation is recommended. IMPRESSION: Intertrochanteric fracture is again visualized with mildly increased offset of the medial cortices of the proximal femur compared to prior examination. Clinical correlation is recommended. Electronically signed by: Yudelka Erickson MD 06/26/2019 12:14 PM [facility]
== END ==
LOC: RAD 10:59
PROVIDERS: ATTEND Orthopaedic Surgery
DX: S72.142D Displaced intertrochanteric fracture of left femur, subsequent encounter for closed fracture with routine healing (principal)

== ENCOUNTER → 2019-07-28 | Outpatient (CLI) | payer OTHER ==
--- NOTE | 2019-07-28 13:17 | RAD ---
2 radiographs left hip Indication: FRACTURE OF GREATER TROCHANTER OF RIGHT FEMUR Comparison: June 2019 Impression: Status post ORIF of intertrochanteric left femoral neck fracture. Progressive callus formation noted about the fracture which remains incompletely united. Fracture alignment is stable. No new hardware complication identified. Moderate to severe left hip osteoarthritis redemonstrated. Osteopenia. If this is a new finding, DEXA scan recommended as well as evaluation for possible osteoporosis treatment. Electronically signed by: Onofre Zimmer MD 07/28/2019 1:15 PM [facility]
== END ==
LOC: RAD 11:16
PROVIDERS: ATTEND Orthopaedic Surgery
DX: S72.145D Nondisplaced intertrochanteric fracture of left femur, subsequent encounter for closed fracture with routine healing (principal); M85.88 Other specified disorders of bone density and structure, other site; Z98.890 Other specified postprocedural states

== ENCOUNTER → 2019-08-28 | Outpatient (CLI) | payer OTHER ==
--- NOTE | 2019-08-28 14:44 | RAD ---
2 radiographs left hip Indication: FX OF GREATER TROCHANTER Comparison: July 28, 2019 Impression: Postsurgical changes of ORIF of the intertrochanteric left femoral fracture redemonstrated. The fracture remains incompletely united with only mild callus formation, not significantly changed compared to the prior examination. The lesser trochanter is likely avulsed and appear stable. CT could better evaluate the degree of healing as clinically indicated. Electronically signed by: Onofre Zimmer MD 08/28/2019 2:43 PM [facility]
== END ==
LOC: RAD 09:58
PROVIDERS: ATTEND Orthopaedic Surgery
DX: S72.112D Displaced fracture of greater trochanter of left femur, subsequent encounter for closed fracture with routine healing (principal)

== ENCOUNTER → 2019-09-11 | Outpatient (CLI) | payer OTHER ==
--- NOTE | 2019-09-12 07:52 | RAD ---
EXAM: Hip,Left 2 Views CLINICAL HISTORY: FX OF GREATER TROCHANTER COMPARISON STUDY: August 28, 2019 TECHNICAL: AP and lateral x-rays of the left FINDINGS: Internal fixation of the left intertrochanteric hip fracture is stable. There is ongoing healing at the fracture site. There is no hardware loosening or failure. There are severe osteoarthritic changes of the left hip. Joint space loss, subchondral sclerosis, subchondral cystic changes and periarticular osteophyte formation of the left hip is similar to the comparison exam. IMPRESSION: 1. Internal fixation of the left intertrochanteric hip fracture shows ongoing healing. 2. Severe osteoarthritic changes of the left hip. Electronically signed by: Juan F Willams MD 09/12/2019 7:51 AM [facility]
== END ==
LOC: RAD 10:50
PROVIDERS: ATTEND Orthopaedic Surgery
DX: S72.112D Displaced fracture of greater trochanter of left femur, subsequent encounter for closed fracture with routine healing (principal); M16.12 Unilateral primary osteoarthritis, left hip; Z98.890 Other specified postprocedural states

== ENCOUNTER → 2019-10-10 | Outpatient (CLI) | payer OTHER ==
--- NOTE | 2019-10-10 16:37 | RAD ---
EXAM DESCRIPTION: Hip,Left 2 Views CLINICAL HISTORY: 89 years Female, FX OF GREATER TROCHANTER COMPARISON: September 11, 2019 Findings: Two views/radiographs Similar alignment of the left femoral intertrochanteric fracture. No hardware complication. Progressive healing. Severe left hip osteoarthritis. Osteopenia. No new fracture identified. No dislocation. Degenerative changes in the sacroiliac joints. IMPRESSION: Healing internally fixated left femoral fracture. Similar alignment. Electronically signed by: Austin Guzman MD 10/10/2019 4:36 PM [facility]
== END ==
LOC: RAD 09:42
PROVIDERS: ATTEND Orthopaedic Surgery
DX: S72.112D Displaced fracture of greater trochanter of left femur, subsequent encounter for closed fracture with routine healing (principal)

== ENCOUNTER 2020-03-26 01:39 | Emergency (ER) | payer OTHER ==
[2020-03-26] MEDS ORDERED: SODIUM CHLORIDE 0.9% 1000ML 1,000 ML IVS PRN (01:55)
[2020-03-26] MEDS ORDERED: SODIUM CHLORIDE 0.9% (FLUSH) 10 ML SYG IV PRN (01:55)
--- NOTE | 2020-03-26 02:04 | ED.PDOC ---
History of Present Illness - General Chief Complaint: Trauma Stated Complaint: fall, hematoma to Left eye Time Seen by Provider: 03/26/20 01:55 Source: patient, RN notes reviewed, Vital Signs reviewed, EMS notes reviewed Exam Limitations: clinical condition, other - History of Present Illness Initial Comments: 89 y/o female in assisted living facility apparently fell out of her chair. unknown LOC. She is agitated at times and wants to get up. she has pain to L femur but is able to flex and extend at the knee. She o/w is not a good historian Occurred: just prior to arrival Severity: moderate Pain Location: head, lower extremity Method of Injury: fall Improving Factors: nothing Worsening Factors: nothing Loss of Consciousness: no loss of consciousness Associated Symptoms (Fall): confusion Allergies/Adverse Reactions: Allergies NO KNOWN ALLERGY Allergy (Verified 04/16/19 09:39) Home Medications: Ambulatory Orders Dexlansoprazole [Dexilant] 60 mg PO DAILY 07/06/18 Irbesartan [Avapro] 300 mg PO DAILY 07/06/18 Meclizine HCl [Meclizine 25] 25 mg PO TID PRN 07/06/18 Levothyroxine Sodium [Synthroid] 88 mcg PO QDAC #60 tab 07/10/18 Aspirin [Aspirin Adult Low Dose] 81 mg PO DAILY 10/18/18 Metoprolol Succinate [Toprol Xl] 25 mg PO DAILY 10/18/18 Rosuvastatin Calcium [Crestor] 40 mg PO DAILY 10/20/18 Tamsulosin HCl [Flomax] 0.4 mg PO DAILY 04/16/19 Alum & Mag Hydrox-Simethicone [Mylanta] 30 ml PO Q4H PRN ud 05/29/19 Magnesium Hydroxide [Milk Of Magnesia] 30 ml PO DAILY PRN ud 05/29/19 Rivaroxaban [Xarelto] 10 mg PO DAILY 27 Days #27 tab 05/29/19 Review of Systems - Review of Systems Unable to Obtain Due To: clinical condition Past Medical History (General) - Patient Medical History Hx Seizures: No Hx Stroke: No Hx Dementia: No Hx Asthma: No Hx of COPD: No Hx Cardiac Disorders: No Hx Congestive Heart Failure: No Hx Pacemaker: No Hx Hypertension: No Hx Thyroid Disease: Yes - takes meds Hx Diabetes: No Hx Gastroesophageal Reflux: No Hx Renal Disease: No Hx Cancer: Yes - Left Breast Hx of HIV: No Hx Hepatitis C: No Hx MRSA: No - Vaccination History Hx Tetanus, Diphtheria Vaccination: No Hx Influenza Vaccination: Yes Hx Pneumococcal Vaccination: Yes - Social History Hx Tobacco Use: No Hx Alcohol Use: No Hx Substance Use: No Hx Substance Use Treatment: No Hx Depression: No Hx Physical Abuse: No Hx Emotional Abuse: No Hx Suspected Abuse: No - Female History Patient : No Family Medical History - Family History Mother Family History: No Known Living Status: Hx Family Hypertension: Yes Hx Family Stroke: Yes Hx Family Diabetes: Yes Father Family History: No Known Living Status: Hx Family Asthma: No Hx Family Congestive Heart Failure: No Hx Family Hypertension: No Hx Family Stroke: No Hx Cardiac Disease: No Hx Family Diabetes: No Hx Family Cancer: Yes - stomach cancer Physical Exam - Physical Exam General Appearance: Agitated, Anxious, Frail Head Injury: swelling - L eyebrow, tenderness Eye Exam: left normal ENT Exam: hearing grossly normal, no evidence of ENT injury, no dental injury Neck Exam: non-tender, full range of motion, normal alignment, normal inspection Cardiovascular/Respiratory: regular rate, rhythm, no M/R/G, normal peripheral pulses, no JVD, normal breath sounds, no respiratory distress Gastrointestinal/Abdominal: normal bowel sounds, non tender, soft, no organomegaly Back Exam: no vertebral tenderness Extremity Exam: tenderness - l femur Neurologic: no motor/sensory deficits, alert Progress - EKG/XRAY/CT EKG: Sinus Comments: 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 Copy, Patient Portal Self Enrollment Instructions: DI for Trauma Referrals: Peewee Kwan MD [Primary Care Provider] - 1-2 Weeks Home Medications: Ambulatory Orders Dexlansoprazole [Dexilant] 60 mg PO DAILY 07/06/18 Irbesartan [Avapro] 300 mg PO DAILY 07/06/18 Meclizine HCl [Meclizine 25] 25 mg PO TID PRN 07/06/18 Levothyroxine Sodium [Synthroid] 88 mcg PO QDAC #60 tab 07/10/18 Aspirin [Aspirin Adult Low Dose] 81 mg PO DAILY 10/18/18 Metoprolol Succinate [Toprol Xl] 25 mg PO DAILY 10/18/18 Rosuvastatin Calcium [Crestor] 40 mg PO DAILY 10/20/18 Tamsulosin HCl [Flomax] 0.4 mg PO DAILY 04/16/19 Alum & Mag Hydrox-Simethicone [Mylanta] 30 ml PO Q4H PRN ud 05/29/19 Magnesium Hydroxide [Milk Of Magnesia] 30 ml PO DAILY PRN ud 05/29/19 Rivaroxaban [Xarelto] 10 mg PO DAILY 27 Days #27 tab 05/29/19
--- NOTE | 2020-03-26 02:24 | RAD ---
EXAM: Pelvis CLINICAL HISTORY: fracture COMPARISON: 05/22/2019 TECHNIQUE: Single AP radiograph of the pelvis. FINDINGS: Intact pelvic ring. Sacroiliac joints are congruent. Symphysis pubis is normal. Advanced bilateral hip osteoarthrosis. Left hip intramedullary cezar with proximal and distal interlocking screws transfixing a healed intertrochanteric fracture deformity. Diffuse bony demineralization. Ill-defined soft tissue density projecting over the left groin and/or lower buttock, potentially representing hematoma. IMPRESSION: 1. No acute fracture or traumatic malalignment. 2. Query soft tissue hematoma of the left groin and/or lower buttock. Electronically signed by: Gio Jason MD 03/26/2020 2:22 AM CDT
--- NOTE | 2020-03-26 02:25 | RAD ---
EXAM DESCRIPTION: Chest,1 View CLINICAL HISTORY: 89 years Female, fall from chair, possible pneumonia COMPARISON: 05/22/2019 TECHNIQUE: Single AP chest radiograph. FINDINGS: Clear lungs. No pneumothorax or pleural effusion. Normal cardiomediastinal contour. No displaced fracture. Bilateral shoulder arthrosis. Surgical clips noted within the left axilla related to left mastectomy.. IMPRESSION: 1. No acute cardiopulmonary process. Electronically signed by: Gio Jason MD 03/26/2020 2:23 AM CDT
--- NOTE | 2020-03-26 02:27 | RAD ---
EXAM DESCRIPTION: X-RAY FEMUR 2 VIEWS CLINICAL HISTORY: fall, pain COMPARISON: 10/17/2018 TECHNIQUE: AP and lateral views of the left femur. FINDINGS: Intramedullary cezar with proximal distal interlocking screws transfixing a healed intertrochanteric fracture deformity of the left hip. No acute fracture dislocation or destructive osseous lesion. Diffuse bony demineralization. Advanced left hip osteoarthrosis. Ill-defined hypodensity of the subcutaneous soft tissues projecting over the groin and/or lower buttock, concerning for a hematoma. IMPRESSION: 1. No acute fracture or traumatic malalignment. 2. Query subcutaneous soft tissue hematoma of the left groin and/or lower buttock. Electronically signed by: Gio Jason MD 03/26/2020 2:26 AM CDT
--- NOTE | 2020-03-26 02:42 | CT ---
EXAM: Head HISTORY: 89 years Female trauma COMPARISON: 05/22/2019 TECHNIQUE: Contiguous axial images of the head were obtained from the skull base through the vertex without IV contrast followed by multiplanar reformats. This exam was performed according to our departmental dose-optimization program, which includes automated exposure control, adjustment of the mA and/or kV according to patient size and/or use of iterative reconstruction technique. FINDINGS: Generalized parenchymal volume loss. No hydrocephalus. No midline shift, mass effect or abnormal extraaxial collection. No acute intracranial hemorrhage or infarct. Chronic microangiopathic ischemic white matter changes. 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 The paranasal sinuses and mastoid air cells are well pneumatized. No acute calvarial abnormality. Left periorbital soft tissue hematoma. IMPRESSION: 1. No acute intracranial pathology. 2. Chronic changes, as above. 3. Left periorbital hematoma. No fracture. Electronically signed by: Gio Jason MD 03/26/2020 2:40 AM CDT
--- NOTE | 2020-03-26 03:52 | RAD ---
EXAM DESCRIPTION: Shoulder,Left 2 or More Views CLINICAL HISTORY: Fall/pain COMPARISON: 05/22/2019 FINDINGS: 2 views of the left shoulder. No acute fracture or dislocation. Severe osteoarthritic change of the left glenohumeral joint. Postoperative change in the left axillary region. Atherosclerotic vascular calcification. No acute abnormality of the visualized left ribs. IMPRESSION: 1. No acute fracture or dislocation. Electronically signed by: Camden Lee 03/26/2020 3:51 AM CDT
[2020-03-26 04:56] VITALS: BP 143/89; TEMP 97.8; O2SAT 97
== END 2020-03-26 05:17 | disposition home or self-care (01) ==
LOC: ER 01:39
DX: S00.12XA Contusion of left eyelid and periocular area, initial encounter (principal); R45.1 Restlessness and agitation; M25.552 Pain in left hip; M19.012 Primary osteoarthritis, left shoulder; E07.9 Disorder of thyroid, unspecified; Z85.3 Personal history of malignant neoplasm of breast; Z79.82 Long term (current) use of aspirin; Z79.899 Other long term (current) drug therapy; W07.XXXA Fall from chair, initial encounter; Y92.129 Unspecified place in nursing home as the place of occurrence of the external cause
CPT/HCPCS: 70450; 71045; 72170; 73030; 73551; 80053; 81001; 85025; 93005; A4216; J2060; J7030

== ENCOUNTER → 2020-04-29 | Outpatient (CLI) | payer OTHER | LOC: BFHH 12:41 | PROVIDERS: ATTEND Family Medicine | DX: F03.91 Unspecified dementia, unspecified severity, with behavioral disturbance (principal); R45.1 Restlessness and agitation; M62.81 Muscle weakness (generalized); I10 Essential (primary) hypertension; I48.20 Chronic atrial fibrillation, unspecified; E03.9 Hypothyroidism, unspecified; E78.2 Mixed hyperlipidemia; Z86.73 Personal history of transient ischemic attack (TIA), and cerebral infarction without residual deficits ==